=== PATIENT | female | born 1965 | race Two or more races ===

== ENCOUNTER 2020-09-26 07:51 | Emergency (ER) | payer OTHER, SELFPAY ==
--- NOTE | 2020-09-26 07:58 | ED.EXTPRO ---
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 Mode of arrival: ambulatory Limitations: no limitations History of Present Illness HPI Narrative: had her R leg up for a while last night while sitting in chair, felt a pull, tried to sleep and she feels like her hip and R thigh muscles are tight and painful, she tried no OTC medications Complaint: extremity pain Onset (ago): day(s) (last night) Pain Consistency: constant Location: right and lower extremity (hip) Quality: aching Radiation: none Relieving factors: nothing Exacerbating factors: weight bearing and walking Associated symptoms: denies other symptoms Related Data Previous Rx's Medication Instructions Recorded cyclobenzaprine 10 mg PO TID PRN #14 tab 09/26/20 ibuprofen 600 mg PO Q6H PRN #30 tab 09/26/20 lidocaine 1 patch TOPICAL DAILY PRN #10 ea 09/26/20 Allergies Allergy/AdvReac Type Severity Reaction Status Date / Time ciprofloxacin [Cipro] Allergy Unknown palpitation Verified 05/08/19 00:00 s diphenhydramine Allergy Rash Verified 09/26/20 07:53 [From Benadryl] tramadol AdvReac Unknown anxiety Verified 05/08/19 00:00 Codeine Sulfate AdvReac Unknown anxiety/tac Uncoded 05/08/19 00:00 hycardia Review of Systems Review of Systems: Constitutional : No Fever, No Chills ENT/Mouth : No Ear Pain, No Hoarseness, No sore throat Eyes: No Eye Pain, No Swelling, No Redness, No Foreign Body Cardiovascular : No Chest Pain, No SOB Respiratory : No Cough, No Dyspnea Gastrointestinal : No Nausea, No Vomiting, No Diarrhea, No abdominal Pain Genitourinary : No Dysuria, No Hematuria Musculoskeletal : positive joint pain, pos Myalgias, No Joint Swelling Skin : No Skin lacerations, No rash Neuro : No Weakness, No Numbness, No Loss of Consciousness, No Dizziness, No Headache Psych : No Anxiety/Panic, No Depression All other systems reviewed and are negative [facility] Past Medical History Attestation statement: The following information was validated with the patient. Medical History (Updated 09/26/20 @ 08:40 by Oriana Bullard DO) Anxiety Asthma HTN (hypertension) Social History Social History (Updated 09/26/20 @ 08:04 by Oriana Bullard DO) Smoking Status: Never smoker Use of substances other than those prescribed or required for medical reasons: No Advance Directives: No Advance Directives Information Provided: Yes Physical Exam Vital Signs: Vital Signs: Last Vital Signs Temp 98.1 F 09/26/20 08:02 Pulse 83 09/26/20 08:02 Resp 16 09/26/20 08:02 BP 151/78 H 09/26/20 08:02 Pulse Ox 97 09/26/20 08:02 Body Mass Index 31.9 Appearance: Alert. Oriented X3. No acute distress. Eyes: Pupils equal, round and reactive to light. ENT: Pharynx normal. Neck: Normal inspection. Neck supple. CVS: Normal heart rate and rhythm. Pulses normal. Respiratory: No respiratory distress. Breath sounds normal. Abdomen: Soft and nontender. Skin: Skin warm and dry. Normal skin color. Normal skin turgor. Extremities: No lower extremity edema. No calf ttp R thigh and hip mild ttp, can range but reports pain, distal NV intact 2+ DP pulse, sensation intact Neuro: Oriented X 3. No motor deficit. No sensory deficit. MDM - Extremity (Nontraumatic) MDM Narrative Medical decision making narrative: 55 yo female who had her leg up last night for a prolonged time comes in with c/o R hip and thigh pain like a spasm, no signs of infection will obtain xray of hip and given anti inflammatory as well as muscle relaxer - anticipate DC home if results negative, she is NV intact Discharge Plan Discharge Clinical Impression: Hip strain Patient Disposition: Home, Self-Care Instructions: Muscle Strain (ED) Additional Instructions: return to ED for any worsening symptoms or concerns if pain continues you might need to see your primary care for a CT scan of your hip Mild degenerative arthritis. Small sclerotic density projecting over the right femoral neck probably bone island. Alternatively may represent osteoid osteoma, if patient has symptom of osteoma such as pain at night relieved by aspirin, May consider correlation with bone scan or CT scan for confirmation. Prescriptions: New cyclobenzaprine 10 mg tablet 10 mg PO TID PRN (Reason: muscle spasm) Qty: 14 RF: 0 lidocaine 4 % adhesive patch,medicated 1 patch topical DAILY PRN (Reason: pain) Qty: 10 RF: 0 ibuprofen 600 mg tablet 600 mg PO Q6H PRN (Reason: pain) Qty: 30 RF: 0 Referrals: Betsy Joshi MD [Primary Care Provider] - 2 days (if not better) Print Language: Argentine
[2020-09-26 08:02] VITALS: BP 151/78; PULSE 83; RESP 16; TEMP 36.7; O2SAT 97; BMI 31.9
--- NOTE | 2020-09-26 08:02 | XR_ITS ---
EXAMINATION: XR PELVIS EXAMINATION: XR HIP, RIGHT , AP pelvis CLINICAL INFORMATION: Pain COMPARISON: None available at the time of this dictation. TECHNIQUE: Frontal and lateral views of the hip acquired. , AP pelvis FINDINGS: There is no evidence of acute fracture or dislocation. There are mild degenerative arthritic changes of the hip evident by sclerotic changes of the acetabular roof and narrowing of the joint space. Mild degenerative changes of the symphysis pubis. Mild degenerative changes of the SI joints. Adjacent pubic rami are intact. Surrounding soft tissues are unremarkable. There is a pericolonic device projecting over the right hemipelvis. The leads projecting over the sacrum. Small sclerotic density likely bone island projecting over the right femoral neck. XR/XR hip RT w PEL1V IMPRESSION: Mild degenerative arthritis. Small sclerotic density projecting over the right femoral neck probably bone island. Alternatively may represent osteoid osteoma, if patient has symptom of osteoma such as pain at night relieved by aspirin, May consider correlation with bone scan or CT scan for confirmation.
[2020-09-26] MEDS: diazePAM 5 MG TABLET PO (08:15)
[2020-09-26] MEDS: Ketorolac Tromethamine 60 MG/2 ML VIAL IM (08:15)
== END 2020-09-26 09:57 | disposition home or self-care (01) ==
PROVIDERS: Emergency Provider Emergency Medicine; PCP Internal Medicine
DX: S76.011A Strain of muscle, fascia and tendon of right hip, initial encounter (principal); X50.1XXA Overexertion from prolonged static or awkward postures, initial encounter; I10 Essential (primary) hypertension; Y93.89 Activity, other specified; Y92.018 Other place in single-family (private) house as the place of occurrence of the external cause; Y99.9 Unspecified external cause status
CPT/HCPCS: 73502; 96372; 99284; J1885

== ENCOUNTER 2021-01-24 10:14 | Outpatient (REF) | payer OTHER, MEDICAID, SELFPAY ==
[2021-01-24 10:52] LABS: MANUAL DIFF FLAG NO
[2021-01-24 10:57] LABS: Basophils Percent Auto 0.8 % (0-2); Eosinophils Absolute Auto 0.2 X10*3/uL (0.0-0.4); Eosinophils Percent Auto 2.9 % (0-4); Hematocrit 39.3 % (37-47); Hemoglobin 11.6 g/dl (12.0-16.0); Imm Gran Abs Auto 0.01 X10*3/uL (0.00-0.03); Imm Gran Pct Auto 0.2 % (0.0-0.4); Lymphocytes Absolute Auto 1.9 X10*3/uL (1.2-4.9); Lymphocytes Percent Auto 35.9 % (20-40); Mean Corpuscular HGB Conc 29.5 g/dl (31.0-35.0); Mean Corpuscular Hemoglobin 21.8 pg (27.0-33.0); Mean Corpuscular Volume 73.9 fL (80-98); Mean Platelet Volume 10.8 fL (9.4-12.3); Monocytes Absolute Auto 0.5 X10*3/uL (0.1-1.2); Monocytes Percent Auto 9.1 % (2-11); Neutrophils Absolute Auto 2.6 X10*3/uL (2.0-8.3); Neutrophils Percent Auto 51.1 % (45-73); Platelet Count 308 X10*3/uL (160-400); Red Blood Count 5.32 X10*6/uL (4.20-5.50); Red Cell Distribution Width 14.5 % (11.0-16.0); White Blood Count 5.2 X10*3/uL (4.8-10.8)
[2021-01-24 11:21] LABS: Alanine Aminotransferase 18 U/L (0-31); Albumin Level 4.2 g/dL (3.5-5.0); Alkaline Phosphatase 104 U/L (39-117); Anion Gap 13 (12-20); Aspartate Amino Transferase 17 U/L (5-31); Bilirubin Total 1.1 mg/dL (0.0-1.0); Blood Urea Nitrogen 10 mg/dL (9-16); Calcium 9.3 mg/dL (8.4-10.2); Carbon Dioxide 27 mmol/L (22-29); Chloride 106 mmol/L (96-108); Estimated Glomerular Filt Rate > 60; Glucose Random 83 mg/dL (60-115); Potassium 4.8 mmol/L (3.3-5.1); Sodium 141 mmol/L (135-145); Total Protein 7.1 g/dL (6.5-8.0)
[2021-01-24 11:43] LABS: Ferritin 33 ng/mL (10-250)
== END 2021-01-24 10:15 | disposition home or self-care (01) ==
LOC: HO.LAB 10:14
PROVIDERS: PCP Internal Medicine; Visit Provider Internal Medicine Medical Oncology
DX: D50.9 Iron deficiency anemia, unspecified (principal)
CPT/HCPCS: 36415; 80053; 82728; 85025

== ENCOUNTER 2021-06-15 08:58 | Outpatient (REF) | payer OTHER, MEDICAID, SELFPAY | END 2021-06-15 08:59 | disposition home or self-care (01) | LOC: HO.LAB 08:58 | PROVIDERS: PCP Internal Medicine; Visit Provider Internal Medicine | DX: Z20.822 Contact with and (suspected) exposure to COVID-19 (principal) | CPT/HCPCS: C9803; U0003; U0005 ==

== ENCOUNTER 2021-07-27 14:07 | Outpatient (REF) | payer OTHER, MEDICAID, SELFPAY ==
--- NOTE | 2021-07-28 08:57 | MHC.AU.ATI ---
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 For the patient, the rash was inside her right ear and was very itchy. She also developed tinnitus that was worse in the right ear. The doctor she saw at the time did not think the rash was an infection, and prescribed drops to help soothe the itching. The rash cleared up, but the tinnitus has persisted since then. She also reports that a few years ago she was prescribed a medication for an unrelated condition that caused numerous significant side effects. One of the effects was a worsening of the right-sided tinnitus. The tinnitus has stayed in a heightened state since then, despite discontinuing the medication. She also feels the tinnitus is worse in the morning. Patient feels that overall, she hears well in daily conversation. Ear History: Ear Deformity: None Reported Recent Ear Drainage: None Reported Recent Ear Pain: None Reported Family History of Hearing Loss?: Yes: Mother Recent Ear Infections: None Reported Ear Infections in Childhood: None Reported History of Ear Wax Buildup: None Reported Previous Ear Surgery: None Reported Bothersome Tinnitus/Ringing/Noises in Ears: Both ears, worse in right Ear used on the phone: Left Ear Blocked/Full Sensation in Ear(s): None Reported History of occupational noise exposure?: No History: No Medical History: Medication List: Clonidine, Wellbutrin, Lamotrigine, Calcium, Fish Oil, Vitamins Otoscopy: Right Ear: Unremarkable Left Ear: Unremarkable Tympanometry: Tympanometry performed due to: To assess integrity of the middle ear system Right Ear: Normal Middle Ear System (Type A) Left Ear: Normal Middle Ear System (Type A) Otoacoustic Emissions Frequency Range Used: 1.6-8 kHz Right Ear Results: Reduced Emissions Analysis: Reduced/Absent emissions suggest cochlear dysfunction Left Ear Results: Reduced Emissions Analysis: Reduced/Absent emissions suggest cochlear dysfunction Hearing Evaluation: Transducer(s) Used: Insert Earphones Method: Conventional Audiometry Stimuli Used: Pure Tones Right Ear: Description of Hearing: Normal/borderline from 250-3000 Hz, sloping to moderate sensorineural hearing loss Left Ear: Description of Hearing: Normal/borderline from 250-3000 Hz, sloping to moderate sensorineural hearing loss Speech Recognition Threshold (SRT): Method Used: Recorded Lists Stimuli Used: Spondee Words [place] Trisyllable Words Right Ear: 25 dBHL Left Ear: 30 dBHL Word Discrimination: Method: Recorded Lists Word Lists Used:: Lista Bisil?bica ([place]) Right Ear: 96% at 65 dBHL Left Ear: 100% at 65 dBHL Interpretation of Results: At this time, the majority of the patient's hearing is still falling within normal range. The mild to moderate hearing loss at 9557-8147 Hz is unlikely to have a significant impact on her daily communication ability. Otoacoustic emissions are reduced/absent bilaterally from 6045-1167 Hz. Recommendations: Audiological re-evaluation in one year. Referral to Ear, Nose, and Throat is recommended to further investigate right-sided tinnitus. Diagnosis: Primary Diagnosis: H93.11 Tinnitus, Right Ear Secondary Diagnosis: H90.3 Bilateral Sensorineural Hearing Loss Signature: Provider: Jaylen Arauz, CCC-A
== END 2021-07-27 14:08 | disposition home or self-care (01) ==
LOC: HO.SH 14:07
PROVIDERS: Visit Provider Internal Medicine
DX: H93.11 Tinnitus, right ear (principal); H90.3 Sensorineural hearing loss, bilateral
CPT/HCPCS: 92557; 92567; 92587

== ENCOUNTER 2022-02-21 11:41 | Outpatient (REF) | payer OTHER, SELFPAY ==
[2022-02-21 13:38] LABS: Appearance Urine CLOUDY; Color Urine YELLOW; Glucose Urine UA NEG (NEG); Leukocyte Esterase Urine 2+ (NEG); Nitrite Urine POS (NEG); Specific Gravity - Urine 1.015 (1.005-1.025); UACC Culture Trigger YES; Urine Blood TRACE (NEG); Urine Ketones NEG (NEG); Urine Protein NEG (NEG-TRACE)
[2022-02-21 14:00] LABS: WBC Urine TNTC /HPF (0-4)
[2022-02-21 14:01] LABS: Bacteria Urine TRACE /LPF
== END 2022-02-21 11:42 | disposition home or self-care (01) ==
LOC: HO.LAB 11:41
PROVIDERS: PCP Internal Medicine; Visit Provider Internal Medicine
DX: R30.0 Dysuria (principal)
CPT/HCPCS: 81001; 87086; 87088; 87186

== ENCOUNTER 2022-09-07 15:41 | Outpatient (REF) | payer OTHER, SELFPAY ==
[2022-09-07 15:57] LABS: MANUAL DIFF FLAG NO
[2022-09-07 17:19] LABS: Basophils Percent Auto 0.6 % (0-2); Eosinophils Absolute Auto 0.2 X10*3/uL (0.0-0.4); Eosinophils Percent Auto 2.7 % (0-4); Hematocrit 38.8 % (37.0-47.0); Hemoglobin 11.8 g/dl (12.0-16.0); Imm Gran Abs Auto 0.02 X10*3/uL (0.00-0.03); Imm Gran Pct Auto 0.3 % (0.0-0.4); Lymphocytes Absolute Auto 2.4 X10*3/uL (1.2-4.9); Lymphocytes Percent Auto 35.4 % (20-40); Mean Corpuscular HGB Conc 30.4 g/dl (31.0-35.0); Mean Corpuscular Volume 72.3 fL (80.0-98.0); Monocytes Absolute Auto 0.5 X10*3/uL (0.1-1.2); Neutrophils Absolute Auto 3.6 x10*3/uL (2.0-8.3); Platelet Count 351 X10*3/uL (160-400); Red Blood Count 5.37 X10*6/uL (4.20-5.50); Red Cell Distribution Width 14.4 % (11.0-16.0); White Blood Count 6.8 X10*3/uL (4.8-10.8)
[2022-09-07 17:22] LABS: Appearance Urine Clear; Color Urine Yellow; Glucose Urine UA Negative (Negative); Leukocyte Esterase Urine Negative (Negative); Nitrite Urine Negative (Negative); PH 5.5 (5.0-9.0); Specific Gravity - Urine 1.025 (1.005-1.025); Urine Blood Negative (Negative); Urine Ketones Negative (Negative); Urine Protein Negative (Neg-Trace)
[2022-09-07 18:10] LABS: Alanine Aminotransferase 19 U/L (0-31); Albumin Level 4.5 g/dL (3.5-5.0); Alkaline Phosphatase 123 U/L (39-117); Anion Gap 10 (12-20); Aspartate Amino Transferase 19 U/L (5-31); Bilirubin Total 1.1 mg/dL (0.0-1.0); Blood Urea Nitrogen 12 mg/dL (9-16); Calcium 9.9 mg/dL (8.4-10.2); Carbon Dioxide 28 mmol/L (22-29); Chloride 103 mmol/L (96-108); Cholesterol 241 mg/dL; Estimated Glomerular Filt Rate > 60; Glucose Fasting 91 mg/dL (60-99); HDL Cholesterol 50 mg/dL; Iron 89 mcg/dL (30-160); LDL Cholesterol Calculated 169 mg/dl; Percent Iron Saturation 24 % (15-50); Potassium 4.1 mmol/L (3.3-5.1); Sodium 137 mmol/L (135-145); Total Iron Binding Capacity 371 mcg/dL (228-428); Total Protein 7.3 g/dL (6.5-8.0); Triglycerides 112 mg/dL; Unsaturated Iron Binding 282 ug/dL; Vitamin D 25-OH Total 22.5 ng/mL (>30)
== END 2022-09-07 15:42 | disposition home or self-care (01) ==
LOC: HO.LAB 15:41
PROVIDERS: PCP Internal Medicine; Visit Provider Internal Medicine
DX: E78.5 Hyperlipidemia, unspecified (principal); E55.9 Vitamin D deficiency, unspecified; D64.9 Anemia, unspecified; E78.00 Pure hypercholesterolemia, unspecified; R30.0 Dysuria
CPT/HCPCS: 36415; 80053; 80061; 81003; 82306; 83540; 85025

== ENCOUNTER 2022-10-04 12:20 | Outpatient (REF) | payer OTHER, SELFPAY ==
--- NOTE | ~2022-10-04 | MM_ITS ---
EXAMINATION: MM SCREENING DIGITAL BREAST TOMOSYNTHESIS, BILATERAL CLINICAL INFORMATION: Screening. Asymptomatic. The lifetime risk of breast cancer based on the Tyrer-Cuzick Model is 6%. COMPARISON: Mammography: July 11, 2016 and studies dating back to November 27, 2012 TECHNIQUE: Digital breast tomosynthesis is performed in both the craniocaudal and mediolateral oblique views along with computer-aided detection (CAD). Synthesized 2D images are generated from the tomosynthesis. FINDINGS: There are scattered areas of fibroglandular density (ACR BI-RADS breast composition Category b). There are no significant masses, abnormal calcifications, or other abnormalities. MM/MM tomosynthesis screening BI IMPRESSION: No significant changes from prior exam. ASSESSMENT: BI-RADS 1: Negative RECOMMENDATION: Routine annual mammography screening. This patient's information was entered into a reminder system with a target due date for their next mammogram.
== END 2022-10-04 12:21 | disposition home or self-care (01) ==
LOC: HO.MAMMO 12:20
PROVIDERS: PCP Internal Medicine; Visit Provider Internal Medicine
DX: Z12.31 Encounter for screening mammogram for malignant neoplasm of breast (principal)
CPT/HCPCS: 77063; 77067

== ENCOUNTER 2023-03-19 13:47 | Outpatient (REF) | payer MEDICARE, OTHER, SELFPAY ==
[2023-03-19 15:10] LABS: Alanine Aminotransferase 16 U/L (0-31); Albumin Level 4.4 g/dL (3.5-5.0); Alkaline Phosphatase 125 U/L (39-117); Anion Gap 11 (12-20); Aspartate Amino Transferase 18 U/L (5-31); Bilirubin Total 0.7 mg/dL (0.0-1.0); Blood Urea Nitrogen 11 mg/dL (9-16); Calcium 9.9 mg/dL (8.4-10.2); Carbon Dioxide 29 mmol/L (22-29); Chloride 106 mmol/L (96-108); Cholesterol 206 mg/dL; Estimated Glomerular Filt Rate > 60; Glucose Fasting 91 mg/dL (60-99); HDL Cholesterol 51 mg/dL; LDL Cholesterol Calculated 133 mg/dl; Potassium 4.4 mmol/L (3.3-5.1); Sodium 142 mmol/L (135-145); Total Protein 7.4 g/dL (6.5-8.0); Triglycerides 113 mg/dL
[2023-03-19 15:25] LABS: Vitamin D 25-OH Total 31.3 ng/mL (>30)
== END 2023-03-19 13:48 | disposition home or self-care (01) ==
LOC: HO.LAB 13:47
PROVIDERS: PCP Internal Medicine; Visit Provider Internal Medicine
DX: E78.00 Pure hypercholesterolemia, unspecified (principal); E78.5 Hyperlipidemia, unspecified; E55.9 Vitamin D deficiency, unspecified
CPT/HCPCS: 36415; 80053; 80061; 82306

== ENCOUNTER 2023-10-02 14:09 | Outpatient (AMB) | payer OTHER, SELFPAY ==
--- NOTE | 2023-10-02 14:17 | MHC.PC.OV ---
Vital Signs 10/02/23 14:20 10/02/23 15:11 Height 5 ft 4 in Weight 185 lb BMI 31.8 BP 158/92 H 160/90 H Blood Pressure Location Lt brachial Lt brachial Position Sitting Sitting Intake Visit Reasons: Annual Exam Intake Note: Patient here for an annual physical exam Frame Feeder Required: No Accompanied by: Self / Same As Patient Allergies ciprofloxacin [Cipro] Allergy (Unknown, Verified 10/02/23 14:29) palpitations diphenhydramine [From Benadryl] Adverse Reaction (Intermediate, Verified 10/02/23 14:29) tachycardia haloperidol Adverse Reaction (Mild, Verified 10/02/23 14:29) Anxiety tramadol Adverse Reaction (Unknown, Verified 10/02/23 14:29) anxiety Codeine Sulfate Adverse Reaction (Unknown, Uncoded 10/02/23 14:29) anxiety/tachycardia Medication List - Last Reconciled 10/02/23 by Betsy Nelson MD calcium carbonate (Calcium) 600 mg PO DAILY 90 days cholecalciferol (vitamin D3) 25 mcg PO DAILY 90 days clonazepam 0.25 mg PO BEDTIME clonidine HCl 0.1 mg PO BID fexofenadine (Roxanne Allergy) 60 mg PO BID PRN 90 days lamotrigine 75 mg PO DAILY mirtazapine 7.5 mg PO DAILY multivitamin 1 tab PO DAILY 30 days pravastatin 10 mg PO BEDTIME 90 days Ventolin HFA 90 mcg/actuation (albuterol sulfate) 2 puffs inhalation Q6H PRN 30 days NS vitamin E (dl, acetate) 180 mg PO DAILY 90 days Tobacco use date assessed: 03/19/23 Dental Screening Dental Screen Date: 10/02/23 Did you have a dental visit in the last 12 months?: Yes Did you have a dental problem in the last 6 months where you did not have access to dental care?: No Was dental information given to patient?: Patient has dentist HPI HPI Comments History of Present Illness Details This is a 58-year-old female with moderate recurrent major depression that comes for her physical exam. Last colonoscopy was 2014 and was normal. Last mammogram was September 2022 and was normal. No need for Pap smear due to hysterectomy. Complains of abdominal pain and fecal incontinence. Was referred to Gastroenterology in March 2023 but she did not want. Depression stable with meds. [facility] Medical History Moderate recurrent major depression Pure hypercholesterolemia UTI (urinary tract infection) Hearing loss HTN (hypertension) Anxiety Asthma Surgical History Female bladder prolapse History of bladder suspension procedure History of total abdominal hysterectomy Family History Brother Mental health disorder Father No problems noted. Mother Mental health disorder Social History Housing: House Alcohol intake: former Patient Tobacco Use Status: Former Tobacco user Tobacco use type: Cigarette e-Cigarette/Vaping Use: Never Used Second Hand Smoke Exposure: No service: No Current occupational status: unemployed Cognitive needs: No Hearing needs: No Vision needs: Yes Questionnaire Thrive Questionnaire Date Thrive assessed: 03/19/23 MARCUS-7 AMB Questionnaire MARCUS-7 Date MARCUS - 7 assessed: 03/19/23 Source: Developed by Drs. Joao Dunbar, Enedelia Chaudhari, Mynor Trevino and colleagues, with an educational jose from [employer]. Review of Systems Const All systems reviewed & are unremarkable except as noted in HPI and below Eyes Reports no additional complaints, Denies change in vision and Denies other visual disturbances Card Denies chest pain at rest, Denies chest pain with activity, Denies edema, Denies irregular heart rhythm, Denies claudication, Denies dyspnea, Denies dyspnea on exertion, Denies orthopnea, Denies paroxysmal nocturnal dyspnea and Denies slow heart rate Resp Denies cough, Denies dyspnea and Denies dyspnea on exertion GI Reports abdominal pain, Denies change in bowel habits, Denies excessive flatus, Reports fecal incontinence, Denies nausea and Denies vomiting Denies urinary incontinence, Denies urinary hesitancy and Denies urinary urgency Musc Denies abnormal gait, Denies atrophy, Denies deformity and Denies limited range of motion Skin/Breast Denies bleeding lesions, Denies changing lesions and Denies rash Neuro Denies abnormal gait, Denies behavioral changes, Denies confusion and Denies lack of coordination Psych Denies behavioral changes and Denies confusion Physical exam (Primary Care) Vital Signs: Last Vital Signs BP 158/92 H 10/02/23 14:20 BMI result Body Mass Index 31.8 Tobacco/Smoking Status: Tobacco use Status Tobacco use date assessed 03/19/23 10/02/23 14:19 Patient Tobacco Use Status Former Tobacco user 10/02/23 14:19 Tobacco use type Cigarette 10/02/23 14:19 e-Cigarette/Vaping Use Never Used 10/02/23 14:19 Thrive Assessment: Date of Thrive Assessment Date Thrive assessed 03/19/23 10/02/23 14:19 Const General: No confusion Orientation/consciousness: patient oriented x3 and No confusion HENMT Head: Yes normal to inspection, Yes normocephalic and Yes atraumatic Ears: external ears normal Eyes General: appearance normal, both eyes and all related structures Eyelids: Yes eyelids normal Conjunctivae: conjunctivae normal Neck Neck: Yes normal visual inspection and Yes supple Resp Effort & Inspection: normal respiratory effort Auscultation: clear to auscultation bilaterally Cardio Jugular venous distension: no JVD Rate: regular rate Rhythm: regular rhythm Heart sounds: S1 normal heart sound present and S2 normal heart sound present GI Inspection: Yes normal to inspection Palpation (GI): Soft to palpation and nontender Auscultation: normal bowel sounds Skin General skin exam: no rashes or lesions noted Neuro General: patient oriented x3, no focal motor deficits and No confusion Extrem General: Yes full ROM Psych Appearance: grossly normal Office Procedures Flu Questionnaire Does the patient have a severe egg allergy?: No Results AMB Urinalysis, Automated UA Leukoctes 3 Jannet/uL Last Edit by ARELY Orozco on 10/02/23 15:04 UA Nitrite Positive Last Edit by ARELY Orozco on 10/02/23 15:04 UA Urobilinogen 3 mg/dL Last Edit by ARELY Orozco on 10/02/23 15:04 + Elicia Adames 10/02/23 15:04 UA Protein 15 mg/dL Last Edit by ARELY Orozco on 10/02/23 15:04 +- Elicia Adames 10/02/23 15:04 UA pH 5.0 Last Edit by ARELY Orozco on 10/02/23 15:04 UA Blood 0 Rg/uL Last Edit by ARELY Orozco on 10/02/23 15:04 UA Specific [place] 1.025 Last Edit by ARELY Orozco on 10/02/23 15:04 UA Ketone Positive Last Edit by ARELY Orozco on 10/02/23 15:04 +- 5mg/dl Elicia Adames 10/02/23 15:04 UA Bilirubin 3 mg/dL Last Edit by ARELY Orozco on 10/02/23 15:04 + Elicia Adames 10/02/23 15:04 UA Glucose 1 mg/dL Last Edit by ARELY Orozco on 10/02/23 15:04 + Elicia Adames 10/02/23 15:04 Immunizations flu vacc [id number] 6mos up(PF) 60 mcg(15 mcgx4)/0.5 mL IM syringe Performing Provider: Betsy Nelson MD [facility] Documented (not given) by: ARELY Orozco on 10/02/23 14:24 Reason Not Given: Patient Refused Results Reviewed Results Reviewed: Laboratory Last Values Urine pH (Auto) 5.0 10/02/23 15:00 Specific [place] (Auto) 1.025 10/02/23 15:00 Urine Protein (Auto) 15 mg/dL 10/02/23 15:00 Glucose (UA)(Auto) 1 mg/dL 10/02/23 15:00 Urine Ketones (Auto) Positive 10/02/23 15:00 Urine Blood (Auto) 0 Rg/uL 10/02/23 15:00 Urine Nitrite (Auto) Positive 10/02/23 15:00 Urine Bilirubin (Auto) 3 mg/dL 10/02/23 15:00 Urine Urobilinogen (Auto) 3 mg/dL 10/02/23 15:00 Leukocyte Esterase (Auto) 3 Jannet/uL 10/02/23 15:00 Assessment and Plan Assessment & Plan (1) Physical exam: Code(s): Z00.00 - Encounter for general adult medical examination without abnormal findings Plan: Repeat in a year. (2) Moderate recurrent major depression: Code(s): F33.1 - Major depressive disorder, recurrent, moderate Plan: Continue mirtazapine. Follow-up with psychiatry. Orders: Orders Influenza [id number] Immunization Today Z23 - Encounter for immunization Vitamin D 25-OH Total Today E55.9 - Vitamin D deficiency, unspecified Comprehensive [place]. Panel Fast Today E78.00 - Pure hypercholesterolemia, unspecified Urine Culture Today N39.0 - Urinary tract infection, site not specified Lipid Panel Today E78.5 - Hyperlipidemia, unspecified SARS-CoV2/FLU/RSV Today R09.89 - Other specified symptoms and signs involving the circulatory and respiratory systems AMB Urinalysis Automated Today N39.0 - Urinary tract infection, site not specified Referrals Gastroenterology Referral R15.9 - Full incontinence of feces Medications: New nitrofurantoin macrocrystal must administer with a meal/food 100 mg PO BID 14 caps 0RF 7 days Coding Level of Care Code Est Pt Prev Care 40-64y(30838) Diagnoses Physical exam Z00.00 Moderate recurrent major depression F33.1 Time Spent (min) 32
[2023-10-02 14:20] VITALS: BP 158/92; BMI 31.8
[2023-10-02 15:11] VITALS: BP 160/90
== END 2023-10-02 15:07 | disposition home or self-care (01) ==
PROVIDERS: Visit Provider Internal Medicine
DX: Z00.00 Encounter for general adult medical examination without abnormal findings (principal); F33.1 Major depressive disorder, recurrent, moderate; N39.0 Urinary tract infection, site not specified
CPT/HCPCS: 81003; 99396

== ENCOUNTER 2023-10-02 14:54 | Outpatient (REF) | payer MEDICARE, OTHER, SELFPAY ==
[2023-10-02 17:25] LABS: Influenza A PCR NEGATIVE (Negative); Influenza B PCR NEGATIVE (Negative); Resp Syncy Virus RNA Qual PCR NEGATIVE (Negative); SARS COV2 PCR INHOUSE NEGATIVE (Negative)
== END 2023-10-02 14:55 | disposition home or self-care (01) ==
LOC: HO.LAB 14:54
PROVIDERS: PCP Internal Medicine; Visit Provider Internal Medicine
DX: Z11.52 Encounter for screening for COVID-19 (principal); R09.89 Other specified symptoms and signs involving the circulatory and respiratory systems; N39.0 Urinary tract infection, site not specified; Z20.822 Contact with and (suspected) exposure to COVID-19
CPT/HCPCS: 0241U; 87086; 87088; 87186

== ENCOUNTER 2023-10-04 12:22 | Outpatient (REF) | payer MEDICARE, OTHER, SELFPAY ==
[2023-10-04 13:33] LABS: Alanine Aminotransferase 18 U/L (0-31); Albumin Level 4.3 g/dL (3.5-5.0); Alkaline Phosphatase 104 U/L (39-117); Anion Gap 11 (12-20); Aspartate Amino Transferase 18 U/L (5-31); Bilirubin Total 1.1 mg/dL (0.0-1.0); Blood Urea Nitrogen 11 mg/dL (9-16); Calcium 9.5 mg/dL (8.4-10.2); Carbon Dioxide 29 mmol/L (22-29); Chloride 105 mmol/L (96-108); Cholesterol 235 mg/dL (<200); Estimated Glomerular Filt Rate > 60; Glucose Fasting 95 mg/dL (60-99); HDL Cholesterol 53 mg/dL (>40); LDL Cholesterol Calculated 155 mg/dL (<100); Potassium 4.5 mmol/L (3.3-5.1); Sodium 140 mmol/L (135-145); Total Protein 7.7 g/dL (6.5-8.0); Triglycerides 139 mg/dL (<150)
[2023-10-04 13:47] LABS: Vitamin D 25-OH Total 29.4 ng/mL (>30)
== END 2023-10-04 12:23 | disposition home or self-care (01) ==
LOC: HO.LAB 12:22
PROVIDERS: PCP Internal Medicine; Visit Provider Internal Medicine
DX: E55.9 Vitamin D deficiency, unspecified (principal); E78.5 Hyperlipidemia, unspecified; E78.00 Pure hypercholesterolemia, unspecified
CPT/HCPCS: 36415; 80053; 80061; 82306

== ENCOUNTER 2023-11-27 13:00 | Outpatient (REF) | payer MEDICARE, OTHER, SELFPAY ==
--- NOTE | ~2023-11-27 | MM_ITS ---
EXAMINATION: MM SCREENING DIGITAL BREAST TOMOSYNTHESIS, BILATERAL CLINICAL INFORMATION: Screening. Asymptomatic. COMPARISON: Mammography: This study is compared with prior exams dating back to 2016. TECHNIQUE: Digital breast tomosynthesis is performed in both the craniocaudal and mediolateral oblique views along with computer-aided detection (CAD). Synthesized 2D images are generated from the tomosynthesis. FINDINGS: There are scattered areas of fibroglandular density (ACR BI-RADS breast composition Category b). There are no significant masses, abnormal calcifications, or other abnormalities. MM/MM tomosynthesis screening BI IMPRESSION: No mammographic evidence of malignancy. ASSESSMENT: BI-RADS BI-RADS 1 - Negative RECOMMENDATION: Routine annual mammography screening. 1 year F/U This examination should not preclude the clinical evaluation of a suspicious palpable abnormality. This patient's information was entered into a reminder system with a target due date for their next mammogram.
== END 2023-11-27 13:01 | disposition home or self-care (01) ==
LOC: HO.MAMMO 13:00
PROVIDERS: PCP Internal Medicine; Visit Provider Internal Medicine
DX: Z12.31 Encounter for screening mammogram for malignant neoplasm of breast (principal)
CPT/HCPCS: 77063; 77067

== ENCOUNTER → 2023-11-27 13:45 | Outpatient (BNV) | payer MEDICARE, OTHER, SELFPAY | PROVIDERS: PCP Internal Medicine; Visit Provider Radiology Diagnostic Radiology | DX: Z12.31 Encounter for screening mammogram for malignant neoplasm of breast (principal) | CPT/HCPCS: 77063; 77067 ==

== ENCOUNTER 2024-01-08 13:12 | Outpatient (AMB) | payer MEDICARE, OTHER, SELFPAY ==
--- NOTE | 2024-01-08 13:18 | A.OFFVIS_ITS ---
Intake Vital Signs 01/08/24 13:21 Height 5 ft 4 in Weight 185 lb 3.013 oz BMI 31.8 BP 138/67 Blood Pressure Location Lt brachial Position Sitting Pulse 86 Intake Visit Reasons: Full incontinence of feces Intake Note: Leeanne presents in the office as a new patient for full incontinence of feces. CC: She is here today because she is having issues with her stomach when she eats she gets pains. She states that when she goes out and her stomach is full she will get sweats and shivers and needs to find a bathroom and if not in time she is will have an accident. She states that she is having other issues with her stomach - She states when she is home and she eats she is unable to do anything because she will get the pains and have to run to the bathroom. It will happen again after the episode. She states that when she gets this pains she can have weakness and shakiness. It does not happen all the time but she will feel like she is going to faint. She states that it can happen when she is under stress or nervous or around people she will feel the pains as well. Utility Sales And Service Manager Required: Yes Utility Sales And Service Manager Name: [id number] Balb[place] Allergies ciprofloxacin [Cipro] Allergy (Unknown, Verified 01/08/24 13:22) palpitations diphenhydramine [From Benadryl] Adverse Reaction (Intermediate, Verified 01/08/24 13:22) tachycardia haloperidol Adverse Reaction (Mild, Verified 01/08/24 13:22) Anxiety tramadol Adverse Reaction (Unknown, Verified 01/08/24 13:22) anxiety Codeine Sulfate Adverse Reaction (Unknown, Uncoded 01/08/24 13:22) anxiety/tachycardia Medication List - Last Reconciled 01/08/24 by Keren Ramos PA-C atorvastatin 10 mg PO BEDTIME 90 days buspirone 5 mg PO DAILY calcium carbonate (Calcium) 600 mg PO DAILY 90 days cholecalciferol (vitamin D3) 25 mcg PO DAILY 90 days clonazepam 0.5 mg PO BID PRN clonidine HCl 0.1 mg PO BID lamotrigine 75 mg PO DAILY mirtazapine 7.5 mg PO DAILY multivitamin 1 tab PO DAILY 30 days Ventolin HFA 90 mcg/actuation (albuterol sulfate) 2 puffs inhalation Q6H PRN 30 days NS HPI HPI Comments History of Present Illness Details 58-year-old female referred with fecal i ncontinence- she says she does not have incontinence- she describes urgency- especially when she gets nervous- this has been ongoing since she was a child- If she has people at her house she gets nervous- and notice she gets a stomach ache- then has to have a BM. Appetite is good- She has no cardiac or respiratory complaint No nausea, vomiting, hematemesis, hematochezia fever chills PT-C/O She is here today because she is having issues with her stomach when she eats she gets pains. She states that when she goes out and her stomach is full she will get sweats and shivers and needs to find a bathroom and if not in time she is will have an accident. She states that she is having other issues with her stomach - She states when she is home and she eats she is unable to do anything because she will get the pains and have to run to the bathroom. It will happen again after the episode. She states that when she gets this pains she can have weakness and shakiness. It does not happen all the time but she will feel like she is going to faint. She states that it can happen when she is under stress or nervous or around people she will feel the pains as well. Reviewed record noting colonoscopy 2014 Dr. Luke hyperplastic polyp [facility] Medical History (Updated 01/08/24 @ 14:25 by Keren Ramos PA-C) IBS (irritable bowel syndrome) Moderate recurrent major depression Pure hypercholesterolemia UTI (urinary tract infection) Hearing loss HTN (hypertension) Anxiety Asthma Surgical History Female bladder prolapse History of bladder suspension procedure History of total abdominal hysterectomy Family History Brother Mental health disorder Father No problems noted. Mother Mental health disorder Social History Housing: House Alcohol intake: former Patient Tobacco Use Status: Former Tobacco user Tobacco use type: Cigarette e-Cigarette/Vaping Use: Never Used Second Hand Smoke Exposure: No service: No Current occupational status: unemployed Cognitive needs: No Hearing needs: No Vision needs: Yes Review of Systems Const All systems reviewed & are unremarkable except as noted in HPI and below Card Denies chest pain and Denies dyspnea Resp Denies dyspnea GI Reports abdominal pain, Denies hematochezia, Denies constipation, Denies heartburn, Reports loose stools, Denies nausea and Denies vomiting Psych Reports anxiety, Reports depression, Denies homicidal ideation and Denies suicidal ideation Physical Exam Vital Signs: Last Vital Signs Pulse 86 01/08/24 13:21 BP 138/67 01/08/24 13:21 BMI result Body Mass Index 31.8 Const General: cooperative, comfortable and no acute distress Orientation/consciousness: patient oriented x3 Limitations: language barrier Eyes Sclerae: sclerae normal Resp Effort & Inspection: normal respiratory effort and able to speak in complete sentences Auscultation: clear to auscultation bilaterally Cardio Rate: regular rate Rhythm: regular rhythm Heart sounds: S1 normal heart sound present and S2 normal heart sound present Skin General skin exam: no rashes or lesions noted Neuro General: patient oriented x3 Extrem General: Yes full ROM Psych Appearance: grossly normal and well kempt Affect: normal affect Attitude: cooperative Thought process: Normal thought process present Thought content: Normal thought content present Insight: Good insight present (Psych) Judgement: Good judgement present (Psych) Assessment & Plan Assessment & Plan (1) Anxiety: Code(s): F41.9 - Anxiety disorder, unspecified Plan: Reassurance (2) IBS (irritable bowel syndrome): Comment: Lifelong loose stool, urgency, associated anxiety Code(s): K58.9 - Irritable bowel syndrome without diarrhea Plan: dicyclomine 10 mg in am- february repeat CBC, CMP, TSH TTG IgA- (3) Fecal incontinence: Comment: describes urgency Code(s): R15.9 - Full incontinence of feces Plan Colonoscopy MG prep Orders: Orders Complete Blood Count Auto Diff Today K52.9 - Noninfective gastroenteritis and colitis, unspecified Endomysial IgA rflx Titer Today K58.9 - Irritable bowel syndrome without diarrhea, R15.9 - Full incontinence of feces Colonoscopy - GI Use Only Today K58.9 - Irritable bowel syndrome without diarrhea, R15.9 - Full incontinence of feces Thyroid Stimulating Hormone Today R19.8 - Other specified symptoms and signs involving the digestive system and abdomen Transglutaminase IgA Today R19.7 - Diarrhea, unspecified Medications: New bisacodyl (Dulcolax (bisacodyl)) Day before procedure @ 12 noon Take 4 tablets by mouth followed by large glass of water 20 mg (4 x 5 mg) PO ONCE PRN 4 tabs 0RF colonoscopy prep 1 day Z12.11 - Encounter for screening for malignant neoplasm of colon polyethylene glycol 3350 (Miralax) Take as directed by mouth the day before your procedure. 238 grams PO ONCE PRN 238 grams 0RF laxative effect 1 day dicyclomine 10 mg PO TID 90 caps 0RF Patient Instructions: Colonoscopy-labs consider add EGD if indicated MG prep dicyclomine HFD Encouraged to call questions or concerns Will see back in follow-up prior to procedure for progress Coding Level of Care Code New Pt Level 3 (96706) Diagnoses Anxiety F41.9 IBS (irritable bowel syndrome) K58.9 Fecal incontinence R15.9 Time Spent (min) 30 Comment asl interpreter
[2024-01-08 13:21] VITALS: BP 138/67; PULSE 86; BMI 31.8
== END 2024-01-08 14:08 | disposition home or self-care (01) ==
PROVIDERS: PCP Internal Medicine; Visit Provider Physician Assistant
DX: F41.9 Anxiety disorder, unspecified (principal); K58.9 Irritable bowel syndrome, unspecified; R15.9 Full incontinence of feces
CPT/HCPCS: 99203

== ENCOUNTER → 2024-01-08 13:12 | Outpatient (BNVA) | payer MEDICARE, OTHER, SELFPAY | PROVIDERS: PCP Internal Medicine; Visit Provider Physician Assistant | DX: K58.9 Irritable bowel syndrome, unspecified (principal); R15.9 Full incontinence of feces; F41.9 Anxiety disorder, unspecified | CPT/HCPCS: 99202 ==

== ENCOUNTER 2024-02-19 12:36 | Outpatient (AMB) | payer MEDICARE, OTHER, SELFPAY ==
--- NOTE | 2024-02-19 12:47 | A.OFFVIS_ITS ---
Vital Signs 02/19/24 12:50 Height 5 ft 4 in Weight 185 lb 3.013 oz BMI 31.8 BP 114/61 Blood Pressure Location Lt brachial Position Sitting Pulse 75 Intake Visit Reasons: per Keren 6-8 weeks for a f/u Intake Note: Leeanne presents in the office as a 6-8 week follow up. CC: She states that she is having diarrhea when she eats anything. Allergies ciprofloxacin [Cipro] Allergy (Unknown, Verified 02/19/24 12:50) palpitations diphenhydramine [From Benadryl] Adverse Reaction (Intermediate, Verified 02/19/24 12:50) tachycardia haloperidol Adverse Reaction (Mild, Verified 02/19/24 12:50) Anxiety tramadol Adverse Reaction (Unknown, Verified 02/19/24 12:50) anxiety Codeine Sulfate Adverse Reaction (Unknown, Uncoded 02/19/24 12:50) anxiety/tachycardia HPI Comments Details: A 58-year-old female seen 1 month ago with abdominal pain-presents today with diarrhea- then says she does not have it much-Abdominal cramping relieved after BM-not much change- We had given dicyclomine trial- she has not taken it- Im scared to take it - She did not have her labs done. She has been scheduled for colonoscopy-last colonoscopy hyperplastic polyp 2014 Dr.Norris Mcgovern good- No N/V/fever or chills- [facility] Medical History IBS (irritable bowel syndrome) Moderate recurrent major depression Pure hypercholesterolemia UTI (urinary tract infection) Hearing loss HTN (hypertension) Anxiety Asthma Surgical History Female bladder prolapse History of bladder suspension procedure History of total abdominal hysterectomy Family History Brother Mental health disorder Father No problems noted. Mother Mental health disorder Social History Housing: House Alcohol intake: former Patient Tobacco Use Status: Former Tobacco user Tobacco use type: Cigarette e-Cigarette/Vaping Use: Never Used Second Hand Smoke Exposure: No service: No Current occupational status: unemployed Cognitive needs: No Hearing needs: No Vision needs: Yes Review of Systems Const All systems reviewed & are unremarkable except as noted in HPI and below Card Denies chest pain GI Reports loose stools, Denies nausea and Denies vomiting Physical Exam Vital Signs: Last Vital Signs Pulse 75 02/19/24 12:50 BP 114/61 02/19/24 12:50 BMI result Body Mass Index 31.8 Const General: cooperative, healthy appearing, comfortable and no acute distress Orientation/consciousness: patient oriented x3 Limitations: no limitations and language barrier Resp Effort & Inspection: normal respiratory effort and able to speak in complete sentences Neuro General: patient oriented x3 Assessment & Plan Assessment & Plan (1) IBS (irritable bowel syndrome): Comment: Lifelong loose stool, urgency, associated anxiety Code(s): K58.9 - Irritable bowel syndrome without diarrhea Category: Medical Plan: dicyclomine-trial reviewed- Patient Instructions: dicyclomine-trial reviewed- Follow through with colonoscopy call with concerns Coding Level of Care Code Est Pt Level 3 (33321) Diagnoses IBS (irritable bowel syndrome) K58.9 Time Spent (min) 25 Comment [id number]
[2024-02-19 12:50] VITALS: BP 114/61; PULSE 75; BMI 31.8
== END 2024-02-19 14:32 | disposition home or self-care (01) ==
PROVIDERS: PCP Internal Medicine; Visit Provider Physician Assistant
DX: K58.9 Irritable bowel syndrome, unspecified (principal)
CPT/HCPCS: 99213

== ENCOUNTER → 2024-02-19 12:36 | Outpatient (BNVA) | payer MEDICARE, OTHER, SELFPAY | PROVIDERS: PCP Internal Medicine; Visit Provider Physician Assistant | DX: K58.9 Irritable bowel syndrome, unspecified (principal) | CPT/HCPCS: 99212 ==

== ENCOUNTER 2024-04-03 13:08 | Outpatient (AMB) | payer OTHER, SELFPAY ==
[2024-04-03 13:09] VITALS: BP 126/70; BMI 30.6
--- NOTE | 2024-04-03 13:09 | MHC.PC.OV ---
Vital Signs 04/03/24 13:09 Height 5 ft 4 in Weight 178 lb BMI 30.6 BP 126/70 Blood Pressure Location Lt brachial Position Sitting Intake Visit Reasons: bp Intake Note: Patient here for a follow up BP Louver Mortiser Operator Required: No Accompanied by: Self / Same As Patient Allergies ciprofloxacin [Cipro] Allergy (Unknown, Verified 04/03/24 13:23) palpitations diphenhydramine [From Benadryl] Adverse Reaction (Intermediate, Verified 04/03/24 13:23) tachycardia haloperidol Adverse Reaction (Mild, Verified 04/03/24 13:23) Anxiety tramadol Adverse Reaction (Unknown, Verified 04/03/24 13:23) anxiety Codeine Sulfate Adverse Reaction (Unknown, Uncoded 04/03/24 13:23) anxiety/tachycardia Medication List - Last Reconciled 04/03/24 by Betsy Nelson MD atorvastatin 10 mg PO BEDTIME 90 days bisacodyl (Dulcolax (bisacodyl)) 20 mg (4 x 5 mg) PO ONCE PRN 1 day buspirone 5 mg PO DAILY calcium carbonate (Calcium 600) 600 mg PO DAILY 90 days cholecalciferol (vitamin D3) 25 mcg PO DAILY 90 days clonazepam 0.5 mg PO BID PRN clonidine HCl 0.1 mg PO BID dicyclomine 10 mg PO TID lamotrigine 75 mg PO DAILY mirtazapine 7.5 mg PO DAILY multivitamin 1 tab PO DAILY 30 days polyethylene glycol 3350 (Miralax) 238 grams PO ONCE PRN 1 day Ventolin HFA 90 mcg/actuation (albuterol sulfate) 2 puffs inhalation Q6H PRN 30 days NS Tobacco use date assessed: 04/03/24 Dental Screening Dental Screen Date: 04/03/24 Did you have a dental visit in the last 12 months?: No Did you have a dental problem in the last 6 months where you did not have access to dental care?: No Was dental information given to patient?: Patient has dentist HPI HPI Comments History of Present Illness Details This is a 59-year-old female with hypertension, pure hypercholesterolemia, moderate major depression and anxiety that comes today for follow-up on her conditions. She complains of allergic rhinitis that has been present for over a year and has tried loratadine with no significant relieved. I will prescribe cetirizine and refer her to an base filler operator. Blood pressure stable. Cholesterol has been well controlled with statins. Moderate major depression and anxiety are follow by Psychiatry and has been stable with medications. No chest pain or shortness of breath. [facility] Medical History (Updated 04/03/24 @ 14:28 by Betsy Nelson MD) IBS (irritable bowel syndrome) Moderate recurrent major depression Pure hypercholesterolemia UTI (urinary tract infection) Hearing loss HTN (hypertension) Anxiety Asthma Surgical History Female bladder prolapse History of bladder suspension procedure History of total abdominal hysterectomy Family History Brother Mental health disorder Father No problems noted. Mother Mental health disorder Social History Housing: House Alcohol intake: former Patient Tobacco Use Status: Former Tobacco user Tobacco use type: Cigarette e-Cigarette/Vaping Use: Never Used Second Hand Smoke Exposure: No service: No Current occupational status: unemployed Cognitive needs: No Hearing needs: No Vision needs: Yes Questionnaire PHQ-9 Over the last 2 weeks, how often have you been bothered by any of the following problems? 1. Little interest or pleasure in doing things: not at all 2. Feeling down, depressed, or hopeless: several days 3. Trouble falling or staying asleep, or sleeping too much: several days 4. Feeling tired or having little energy: not at all 5. Poor appetite or overeating: several days 6. Feeling bad about yourself - or that you are a failure or have let yourself or your family down: not at all 7. Trouble concentrating on things, such as reading the newspaper or watching television: not at all 8. Moving or speaking so slowly that other people could have noticed. Or the opposite - being so fidgety or restless that you have been moving around a lot more than usual: not at all 9. Thoughts that you would be better off or of hurting yourself in some way: not at all Total score: 3 Depression Screening Interpretation: Positive Depression Screening Follow-up: Existing condition, In treatment, Community Mental Health Worker F/U and Follow-up Visit Requested Depression Screening Done: Yes 00887 - PHQ-9 Billing: Yes Source: Developed by Drs. Joao Dunbar, Mynor Wang and colleagues, with an educational jose from [employer]. Thrive Questionnaire Date Thrive assessed: 04/03/24 I am a: Patient What is your living situation today?: I have a steady place to live Within the past 12 months, did the food you bought not last and you didn't have the money to get more?: Never true Within the past 12 months, did you worry whether your food would run out before you got money to buy more?: Never true Do you have trouble paying for medicines?: No Do you have trouble getting transportation to medical appointments?: No Do you have trouble paying your heating and electricity bill?: No Do you have trouble taking care of your child, family member or friend?: No Do you have trouble with day-to-day activities such as bathing, preparing meals, shopping, managing finances, etc.?: No Are you currently unemployed and looking for a job?: No Are you interested in more education?: No Please select the resources that you would like help with: None Currently or been in a relationship where the following occur: No concerns reported THRIVE Score: 0 AUDIT C Alcohol Use Questionnaire (AUDIT-C) 1. How often do you have a drink containing alcohol?: Never Total Score: 0 Score Reviewed/Action Taken: No MARCUS-7 AMB Questionnaire MARCUS-7 Date MARCUS - 7 assessed: 04/03/24 Feeling nervous, anxious, or on edge: 1 = Several days Not being able to stop or control worryin = Not at all Worrying too much about different things: 1 = Several days Trouble relaxin = Not at all Being so restless that it is hard to sit still: 0 = Not at all Becoming easily annoyed or irritable: 1 = Several days Feeling afraid as if something awful might happen: 1 = Several days Total MARCUS-7 score (0-4 normal; 5-9 mild; 10-14 moderate; 15-21 severe): 4 Source: Developed by Enedelia Rebolledo Kurt Kroenke and colleagues, with an educational jose from [employer]. MARCUS-7 Assessment Billing MARCUS-7 Assessment Tool: MARCUS-7 Assessment 20871 Review of Systems Const All systems reviewed & are unremarkable except as noted in HPI and below Card Denies chest pain at rest, Denies chest pain with activity, Denies edema, Denies irregular heart rhythm, Denies claudication, Denies dyspnea, Denies dyspnea on exertion, Denies orthopnea, Denies paroxysmal nocturnal dyspnea and Denies slow heart rate Resp Denies cough, Denies dyspnea and Denies dyspnea on exertion Physical exam (Primary Care) Vital Signs: Last Vital Signs BP 126/70 04/03/24 13:09 BMI result Body Mass Index 30.6 BMI Assessment/Plan discussion: High BMI High, discussed plan: lifestyle, weight reduction, dietary and physical activity Tobacco/Smoking Status: Tobacco use Status Tobacco use date assessed 04/03/24 04/03/24 13:14 Patient Tobacco Use Status Former Tobacco user 04/03/24 13:14 Tobacco use type Cigarette 04/03/24 13:14 e-Cigarette/Vaping Use Never Used 04/03/24 13:14 PHQ-9: PHQ-9 Score PHQ-9: Total score 3 04/03/24 13:27 Depression Screening Interpretation: Positive Depression Screening Follow-up: Existing condition, In treatment, Community Mental Health Worker F/U and Follow-up Visit Requested Thrive Assessment: Date of Thrive Assessment Date Thrive assessed 04/03/24 04/03/24 13:14 Currently or been in a relationship where the following occur: No concerns reported Resp Effort & Inspection: normal respiratory effort Auscultation: clear to auscultation bilaterally Cardio Jugular venous distension: no JVD Rate: regular rate Rhythm: regular rhythm Heart sounds: S1 normal heart sound present and S2 normal heart sound present Extrem General: Yes full ROM Assessment and Plan Assessment & Plan (1) Moderate recurrent major depression: Code(s): F33.1 - Major depressive disorder, recurrent, moderate Plan: Continue mirtazapine. Follow-up with psychiatry. (2) Allergic rhinitis: Code(s): J30.9 - Allergic rhinitis, unspecified Qualifiers: Allergic rhinitis trigger: pollen Allergic rhinitis seasonality: seasonal Qualified Code(s): J30.1 - Allergic rhinitis due to pollen Plan: Start cetirizine as needed. Referred to an base filler operator. (3) Essential hypertension: Code(s): I10 - Essential (primary) hypertension Plan: Continue clonidine. Blood pressure goal is equal or less than 130/80. (4) Pure hypercholesterolemia: Code(s): E78.00 - Pure hypercholesterolemia, unspecified Plan: Continue statins. Repeat lipid panel. Continue low-cholesterol diet. (5) Anxiety: Code(s): F41.9 - Anxiety disorder, unspecified Plan: Continue buspirone. Follow-up with psychiatry. Orders: Orders IRON PROFILE Today D64.9 - Anemia, unspecified Lipid Panel Today E78.5 - Hyperlipidemia, unspecified Vitamin D 25-OH Total Today E55.9 - Vitamin D deficiency, unspecified Comprehensive [place]. Panel Fast Today I10 - Essential (primary) hypertension Complete Blood Count Auto Diff Today D64.9 - Anemia, unspecified Referrals Allergy & Immunology Referral J30.9 - Allergic rhinitis, unspecified Medications: New cetirizine (Allergy Relief (cetirizine)) 10 mg PO DAILY PRN 90 tabs 0RF allergy symptoms 90 days Coding Level of Care Code Est Pt Level 4 (43968) Complex EM visit Add On G2211 Diagnoses Moderate recurrent major depression F33.1 Seasonal allergic rhinitis due to pollen J30.1 Allergic rhinitis trigger: pollen Allergic rhinitis seasonality: seasonal Essential hypertension I10 Pure hypercholesterolemia E78.00 Anxiety F41.9 Additional Codes MARCUS-7 Assessment Billing - MARCUS-7 Assessment Tool: MARCUS-7 Assessment 94839 ([id number]) Time Spent (min) 21
== END 2024-04-03 13:31 | disposition home or self-care (01) ==
PROVIDERS: PCP Internal Medicine; Visit Provider Internal Medicine
DX: J30.1 Allergic rhinitis due to pollen (principal); F33.1 Major depressive disorder, recurrent, moderate; I10 Essential (primary) hypertension; E78.00 Pure hypercholesterolemia, unspecified; F41.9 Anxiety disorder, unspecified
CPT/HCPCS: 99214; G2211

== ENCOUNTER 2024-09-11 11:50 | Day surgery (SDC) | payer MEDICARE, OTHER, SELFPAY ==
[2024-05-20 10:13] VITALS: BMI 30.6
--- NOTE | 2024-09-10 09:52 | P.CONAN_ITS ---
Documented by User: Kathryn Ronquillo NP 09/10/24 09:54 HPI - Anesthesia Eval Consult details Narrative: 59yo F for Colonoscopy PMFSH Active Problems Active Problems: All Active Problems Allergic rhinitis (Acute) Essential hypertension (Acute) Fecal incontinence (Acute) Dyspepsia (Acute) Physical exam (Acute) Mild anxiety (Acute) Otitis externa of right ear (Acute) Tinnitus (Acute) Physical exam (Acute ~09/14/21) IBS (irritable bowel syndrome) (Acute) Moderate recurrent major depression (Acute) Pure hypercholesterolemia (Acute) UTI (urinary tract infection) (Acute) Asthma (Acute) Anxiety (Acute) Hearing loss (Acute) Past Medical History Medical History IBS (irritable bowel syndrome) Moderate recurrent major depression Pure hypercholesterolemia UTI (urinary tract infection) Hearing loss HTN (hypertension) Anxiety Asthma Family History Family History Brother Mental health disorder Father No problems noted. Mother Mental health disorder Surgical History Surgical History H/O colonoscopy Female bladder prolapse History of bladder suspension procedure History of total abdominal hysterectomy Social History Social History Housing: House Alcohol intake: former Patient Tobacco Use Status: Former Tobacco user Tobacco use type: Cigarette e-Cigarette/Vaping Use: Never Used Second Hand Smoke Exposure: No Advance Directives: No Advance Directives Information Provided: Yes service: No Current occupational status: unemployed Cognitive needs: No Hearing needs: No Vision needs: Yes Meds Allergies Allergy/AdvReac Type Severity Reaction Status Date / Time ciprofloxacin [Cipro] Allergy Intermediate palpitation Verified 05/20/24 10:11 s codeine Allergy Intermediate anxiety/tac Verified 05/20/24 10:11 hycardia diphenhydramine AdvReac Intermediate tachycardia Verified 04/03/24 13:23 [From Benadryl] tramadol AdvReac Intermediate anxiety Verified 05/20/24 10:11 haloperidol AdvReac Mild Anxiety Verified 04/03/24 13:23 Home Medications ?Medication ?Instructions ?Recorded ?Confirmed ?Last Taken ?Type mirtazapine 7.5 mg tablet 7.5 mg PO DAILY 09/14/21 05/20/24 Unknown History clonidine HCl 0.1 mg tablet 0.1 mg PO BID 03/19/23 05/20/24 Unknown History lamotrigine 25 mg tablet 75 mg PO DAILY 03/19/23 05/20/24 Unknown History buspirone 5 mg tablet 5 mg PO DAILY 01/08/24 05/20/24 Unknown History clonazepam 1 mg tablet 0.5 mg PO BID PRN Anxiety 01/08/24 05/20/24 Unknown History Exam Height,Weight and Vital Signs: Height 5 ft 4 in Weight 80.739 kg Assessment and Plan Assessment Anesthesia Assessment: Chart Reviewed Documented by User: Yana Buckner MD 09/11/24 12:38 [facility] Past Medical History Medical History IBS (irritable bowel syndrome) Moderate recurrent major depression Pure hypercholesterolemia UTI (urinary tract infection) Hearing loss HTN (hypertension) Anxiety Asthma Family History Family History Brother Mental health disorder Father No problems noted. Mother Mental health disorder Family history of problems with anesthesia: No Surgical History Surgical History H/O colonoscopy Female bladder prolapse History of bladder suspension procedure History of total abdominal hysterectomy History of Problems with Anesthesia: No Social History Social History Housing: House Alcohol intake: former Patient Tobacco Use Status: Former Tobacco user Tobacco use type: Cigarette e-Cigarette/Vaping Use: Never Used Second Hand Smoke Exposure: No Advance Directives: No Advance Directives Information Provided: Yes service: No Current occupational status: unemployed Cognitive needs: No Hearing needs: No Vision needs: Yes Meds Allergies Allergy/AdvReac Type Severity Reaction Status Date / Time ciprofloxacin [Cipro] Allergy Intermediate palpitation Verified 05/20/24 10:11 s codeine Allergy Intermediate anxiety/tac Verified 05/20/24 10:11 hycardia diphenhydramine AdvReac Intermediate tachycardia Verified 04/03/24 13:23 [From Benadryl] tramadol AdvReac Intermediate anxiety Verified 05/20/24 10:11 haloperidol AdvReac Mild Anxiety Verified 04/03/24 13:23 Home Medications ?Medication ?Instructions ?Recorded ?Confirmed ?Last Taken ?Type mirtazapine 7.5 mg tablet 7.5 mg PO DAILY 09/14/21 05/20/24 Unknown History clonidine HCl 0.1 mg tablet 0.1 mg PO BID 03/19/23 05/20/24 Unknown History lamotrigine 25 mg tablet 75 mg PO DAILY 03/19/23 05/20/24 Unknown History buspirone 5 mg tablet 5 mg PO DAILY 01/08/24 05/20/24 Unknown History clonazepam 1 mg tablet 0.5 mg PO BID PRN Anxiety 01/08/24 05/20/24 Unknown History Exam Airway Mallampati Class: II TM Dist: >3cm Neck ROM: Full Heart: rrr Lungs: cta Assessment and Plan Assessment Anesthesia Assessment: Anesthesia Plan Discussed Final Anesthetic Review Family History of Problems with Anesthesia: No History of Problems with Anesthesia: No NPO: Yes ASA Class: III Final Preanesthetic Review: No Changes in Pt Med Stat Patient Risk: Low Procedure Risk: Low Anesthetic Plan Anesthetic Plan: MAC: Disposition: Standard PACU
[2024-09-11] VITALS (7 sets, daily range): BP systolic 116–137; BP diastolic 57–67; PULSE 49–69; RESP 16–18; TEMP 36.1–36.8; O2SAT 98–100; BMI 26.4
[2024-09-11] MEDS: Lactated Ringers 1,000 ML 100 ML IVCONT (13:03)
--- NOTE | 2024-09-11 14:05 | MHC.SHP ---
Pre-Procedural Eval Section A - 24 Hr Update-Section A only Date of Service: 09/11/24 Section B - Complete if H&P > 30 days Chief Complaint: IBS,full incontinence of feces, Details of Present Illness: IBS (irritable bowel syndrome) Moderate recurrent major depression Pure hypercholesterolemia UTI (urinary tract infection) Hearing loss HTN (hypertension) Anxiety Asthma Surgical History Female bladder prolapse History of bladder suspension procedure History of total abdominal hysterectomy Allergies: Allergies Allergy/AdvReac Type Severity Reaction Status Date / Time ciprofloxacin [Cipro] Allergy Intermediate palpitation Verified 09/11/24 13:24 s codeine Allergy Intermediate anxiety/tac Verified 09/11/24 13:24 hycardia diphenhydramine AdvReac Intermediate tachycardia Verified 09/11/24 13:24 [From Benadryl] tramadol AdvReac Intermediate anxiety Verified 09/11/24 13:24 haloperidol AdvReac Mild Anxiety Verified 09/11/24 13:24 Review of Systems Review of Systems Comment: Ten point ROS negative Exam Exam Comment: Gen appear: No acute distress HEENT: no icterus Chest: No overt resp distress Abd: soft, nontender, nondistended Psych: Stable affect, answering questions appropriately Neuro: A/Ox3 noted to move all extremities spontaneously Ext: no peripheral edema Plan Diagnosis/Plan: Unchanged I have reviewed the history and physical and performed a pertinent physical examination on my patient. No changes have occurred unless specified. Time Spent With Patient Time: Total time managing care of this patient today ____ minutes.
--- NOTE | 2024-09-11 14:44 | HO.OPN-COLON ---
Colonoscopy Operative Note Operative Note Date of Service: 09/11/24 Narrative: Procedure: Colonoscopy Indication: Screening Endoscopist: Lucie Soto MD Anesthesia Provider: Daily King CRNA Anesthesia type: MAC Instrument: Olympus [id number]-[id number] Consent: Indication, risks vs benefits, and alternatives were discussed with the patient who gave written informed consent to proceed. An manager strategy & account was utilized to assist with the consent. EKG, pulse, pulse oximetry and blood pressure were monitored throughout the procedure. Please see anesthesia flowsheet. Procedure: The patient was brought to the procedure room and placed in the left lateral decubitus position. IV medications were administered by the anesthesia provider in attendance. A digital rectal exam was performed which was abnormal for external hemorrhoids. A distal attachment cap was affixed to the tip of the colonoscope which was then inserted through the anus and advanced through the colon to the cecum at 75 cm,and terminal ileum. Appendiceal orifice and ileocecal valve were identified. Mucosa was carefully examined under high definition white light as the instrument was slowly withdrawn in a retrograde panoramic fashion. Retroflexion was performed in rectum. The procedure was not difficult. There were no immediate obvious complications. The quality of the prep was BBPS: 2+3+3 = adequate Withdrawal time 9 minutes. Limitations: No limitations. Findings: Mucosa: Normal to cecum and terminal ileum. Protruding lesions: Medium internal hemorrhoids without stigmata of recent bleeding. Impression: 1. Normal colon and terminal ileum mucosa 2. Internal hemorrhoids Recommendations: - repeat colonoscopy in 10 years for asymptomatic colorectal cancer screening
[2024-09-11] MEDS: Acetaminophen 1,000 MG/100 ML PIGGYBACK 400 MG IV (15:48)
== END 2024-09-11 16:35 | disposition home or self-care (01) ==
PROVIDERS: PCP Internal Medicine; Visit Provider Internal Medicine
PROC: 0DJD8ZZ Inspection of Lower Intestinal Tract, Via Natural or Artificial Opening Endoscopic (ICD-10-PCS; CPT 45378; principal; 2024-09-11 13:40)
DX: Z12.11 Encounter for screening for malignant neoplasm of colon (principal); K58.9 Irritable bowel syndrome, unspecified; R15.9 Full incontinence of feces; K64.8 Other hemorrhoids; E78.00 Pure hypercholesterolemia, unspecified; I10 Essential (primary) hypertension; J45.909 Unspecified asthma, uncomplicated; F33.2 Major depressive disorder, recurrent severe without psychotic features; F41.9 Anxiety disorder, unspecified; Z98.890 Other specified postprocedural states; Z88.1 Allergy status to other antibiotic agents; Z88.5 Allergy status to narcotic agent; Z88.8 Allergy status to other drugs, medicaments and biological substances; Z87.891 Personal history of nicotine dependence; Z56.0 Unemployment, unspecified
CPT/HCPCS: G0121; J0131; J2003; J2704

== ENCOUNTER → 2024-09-11 11:50 | Outpatient (BNV) | payer MEDICARE, OTHER, SELFPAY | PROVIDERS: PCP Internal Medicine; Visit Provider Internal Medicine | DX: Z12.11 Encounter for screening for malignant neoplasm of colon (principal); Z86.0102 Personal history of hyperplastic colon polyps; K64.8 Other hemorrhoids | CPT/HCPCS: G0105 ==

== ENCOUNTER 2024-09-16 13:26 | Outpatient (REF) | payer MEDICARE, OTHER, SELFPAY ==
[2024-09-16 13:41] LABS: MANUAL DIFF FLAG NO
[2024-09-16 14:24] LABS: Basophils Percent Auto 0.6 % (0-2); Eosinophils Absolute Auto 0.2 X10*3/uL (0.0-0.4); Eosinophils Percent Auto 2.1 % (0-4); Hematocrit 39.1 % (37.0-47.0); Hemoglobin 12.1 g/dl (12.0-16.0); Imm Gran Abs Auto 0.02 X10*3/uL (0.00-0.03); Imm Gran Pct Auto 0.3 % (0.0-0.4); Lymphocytes Absolute Auto 2.3 X10*3/uL (1.2-4.9); Lymphocytes Percent Auto 31.8 % (20-40); Mean Corpuscular HGB Conc 30.9 g/dl (31.0-35.0); Mean Corpuscular Hemoglobin 23.3 pg (27.0-33.0); Mean Corpuscular Volume 75.3 fL (80.0-98.0); Mean Platelet Volume 10.5 fL (9.4-12.3); Monocytes Absolute Auto 0.4 X10*3/uL (0.1-1.2); Monocytes Percent Auto 5.9 % (2-11); Neutrophils Absolute Auto 4.2 x10*3/uL (2.0-8.3); Neutrophils Percent Auto 59.3 % (45-73); Platelet Count 321 X10*3/uL (160-400); Red Blood Count 5.19 X10*6/uL (4.20-5.50); White Blood Count 7.1 X10*3/uL (4.8-10.8)
[2024-09-16 15:25] LABS: Albumin Level 4.2 g/dL (3.5-5.0); Anion Gap 12 (12-20); Aspartate Amino Transferase 21 U/L (5-31); Bilirubin Total 0.6 mg/dL (0.0-1.0); Blood Urea Nitrogen 7 mg/dL (9-16); Calcium 9.6 mg/dL (8.4-10.2); Carbon Dioxide 28 mmol/L (22-29); Chloride 106 mmol/L (96-108); Cholesterol 170 mg/dL (<200); Estimated Glomerular Filt Rate > 60; Glucose Fasting 96 mg/dL (60-99); HDL Cholesterol 48 mg/dL (>40); Iron 58 mcg/dL (30-160); LDL Cholesterol Calculated 93 mg/dL (<100); Percent Iron Saturation 18 % (15-50); Potassium 3.8 mmol/L (3.3-5.1); Sodium 142 mmol/L (135-145); Total Iron Binding Capacity 331 mcg/dL (228-428); Total Protein 7.1 g/dL (6.5-8.0); Triglycerides 149 mg/dL (<150); Unsaturated Iron Binding 273 ug/dL
[2024-09-16 15:34] LABS: Vitamin D 25-OH Total 28.7 ng/mL (>30)
[2024-09-16 15:38] LABS: Thyroid Stimulating Hormone 1.57 uIU/mL (0.32-4.0)
[2024-09-16 16:18] LABS: Alanine Aminotransferase 18 U/L (0-31); Alkaline Phosphatase 86 U/L (39-117)
[2024-09-17 21:13] LABS: Transglutaminase IgA <1.0 U/mL
--- OUTSIDE RECORDS SUMMARY | 2024-09-17 21:40 | XMS_ITS | Patient Health Record ---
Author Organization Joao Real III, MD Address [address] [place] [address] Care Team Providers Care Asic Design Engineer Name Role Phone [facility] Primary Care Provider Nancy Joao Devi Unavailable [phone] Allergies Allergen (clinical drug ingredient) Drug/Non Drug Allergy documented on EMR Reaction Allergy Type Onset Date Status Haldol Unknown Drug Allergy Active Codeine Phosphate Unknown Drug Allergy Active diphenhydramine Benadryl Unknown Drug Allergy A ctive Reason For Referral No Information Medications Medication SIG (Take, Route, Frequency, Duration) Notes Start Date End Date Status Calcium 600 600 MG TAKE 1 TABLET IN THE EVENING ONCE A DAY ORALLY Oral Active Multi-Vitamins TAKE 1 TABLET IN THE EVENING ONCE A DAY ORALLY Oral Active clonazePAM 0.5 MG TK 1/2 T PO BID Oral Active cloNIDine HCl 0.1 MG Oral Active Remeron 15 MG 1 tablet before bedt nikos every evening Orally Once a day Active Mirtazapine 30 MG TAKE 1 TABLET IN THE EVENING ONCE A DAY ORALLY Oral Active Fish Oil 1000 MG TAKE 1 TABLET IN THE EVENING ONCE A DAY ORALLY Oral Active Pravastatin Sodium 20 MG TAKE 1 TABLET I N THE EVENING ONCE A DAY ORALLY Oral Active Pravastatin Sodium 10 MG 1 tablet Orally Once a day for 30 day(s) Active Vitamin E 100 UNIT 1 capsule Orally Onc e a day for 30 day(s) Active Problems Problem Type SNOMED Code ICD Code Onset Dates Problem Status W/U Status Risk Notes Problem 1325450 Former smoker (Z87.891) Active confirmed She is highly motivated not to smoke and has a strategy for maintenance of abstinence. Problem 234130860 Obesity (E66.9) Active confirmed I recommended weight loss with exercise to healthy diet restricted in fat sodium and calories Problem 73231227 Thalassemia trait (D56.3) Active confirmed She continues to have a low mean cell volume with a normal ferritin. No action is necessary. Observation will continue. Problem 33501163 Unspecified urinary incontinence (R32) Active confirmed Problem 62543041 Depressive disorder, not elsewhere classified (F32.9) Active confirmed Problem 54057664 Iron deficiency anemia (D50.9) Active confirmed Her ferritin is in the normal range and she is no longer anemic. This is taking iron supplements. Observation will continue. Plan Of Treatment Pending Test Test Name Order Date PROFILE, RANDOM (COMPREHENSIVE METABOLIC ) 01/22/2017 PROFILE, RANDOM (COMPREHENSIVE METABOLIC ) 01/18/2021 FERRITIN 01/22/2017 CBC w DIFF 01/18/2021 CBC w DIFF 01/22/2017 Ferritin 01/18/2021 Insurance Providers Payer Name Payer Address Payer Phone Subscriber Number Group Number Insured Name Patient Relationship to Insured Coverage Start Date Coverage End Date [facility] [address] [address] [place] [address] [id number] Leeanne Amin Self - patient is the insured MEDICAID [address] [place], [place] [id number] Leeanne Amin Self - patient is the insured Medical (General) History Medical History History ICD Code urinary incontinence possible [id number] trait iron deficiency anemia hyperlipidemia depression anxiety 6 cm ovarian cyst dysfunctional uterine bleeding fibroid uterus hysterectomy Epistaxis 784.7 Tinnitus 388.30 Surgical History Surgery Date(Month/Year) bladder incontinence surgery total abdominal hysterectomy, right salp ingo-oophorectomy October 2012 3 vaginal deliveries
[2024-09-19 23:35] LABS: Endomysial IgA Antibody Negative (Negative)
== END 2024-09-16 13:27 | disposition home or self-care (01) ==
LOC: HO.LAB 13:26
PROVIDERS: Physician Assistant; PCP Internal Medicine; Visit Provider Internal Medicine
DX: K58.9 Irritable bowel syndrome, unspecified (principal); R15.9 Full incontinence of feces; K52.9 Noninfective gastroenteritis and colitis, unspecified; R19.8 Other specified symptoms and signs involving the digestive system and abdomen; R19.7 Diarrhea, unspecified; E55.9 Vitamin D deficiency, unspecified; D64.9 Anemia, unspecified; E78.5 Hyperlipidemia, unspecified; I10 Essential (primary) hypertension
CPT/HCPCS: 36415; 80053; 80061; 82306; 83540; 84443; 85025; 86231; 86364

== ENCOUNTER 2024-10-16 13:16 | Outpatient (AMB) | payer MEDICARE, OTHER, SELFPAY ==
--- NOTE | 2024-10-16 13:27 | A.OFFPC_ITS ---
Vital Signs 10/16/24 13:28 Height 5 ft 4 in Weight 154 lb BMI 26.4 BP 130/82 Blood Pressure Location Lt brachial Position Sitting Intake Visit Reasons: Annual Exam Intake Note: Patient here for a physical exam Surveillance Technician Required: No Accompanied by: Self / Same As Patient Allergies ciprofloxacin [Cipro] Allergy (Intermediate, Verified 10/16/24 13:36) palpitations codeine Allergy (Intermediate, Verified 10/16/24 13:36) anxiety/tachycardia diphenhydramine [From Benadryl] Adverse Reaction (Intermediate, Verified 10/16/24 13:36) tachycardia tramadol Adverse Reaction (Intermediate, Verified 10/16/24 13:36) anxiety haloperidol Adverse Reaction (Mild, Verified 10/16/24 13:36) Anxiety Medication List - Last Reconciled 10/16/24 by Betsy Nelson MD atorvastatin 10 mg PO BEDTIME 90 days buspirone 5 mg PO DAILY calcium carbonate (Calcium 600) 600 mg PO DAILY 90 days cetirizine (Allergy Relief (cetirizine)) 10 mg PO DAILY PRN 90 days cholecalciferol (vitamin D3) 25 mcg PO DAILY 90 days clonazepam 0.5 mg PO BID PRN clonidine HCl 0.1 mg PO BID dicyclomine 10 mg PO TID lamotrigine 75 mg PO DAILY mirtazapine 7.5 mg PO DAILY multivitamin 1 tab PO DAILY 30 days Ventolin HFA 90 mcg/actuation (albuterol sulfate) 2 puffs inhalation Q6H PRN 30 days NS Tobacco use date assessed: 10/16/24 Dental Screening Dental Screen Date: 10/16/24 Did you have a dental visit in the last 12 months?: Yes Did you have a dental problem in the last 6 months where you did not have access to dental care?: No Was dental information given to patient?: Patient has dentist HPI HPI Comments History of Present Illness Details Telugu-speaking patient and I did translate. This is a 59-year-old female that comes for her physical exam. Colonoscopy done last year which was normal. Mammogram done last year. No need for Pap smear due to hysterectomy. Tdap vaccine done 2011 and she will receive tetanus vaccine today. Complains of abdominal pain and diarrhea and weight loss due to having diarrhea after she eats. Saw Gastroenterology for that matter. Will make another appointment with Gastroenterology. Also complains of headaches and I will refer her to Neurology. She has moderate major depression follow by Psychiatry and is controlled with medications. [facility] Medical History IBS (irritable bowel syndrome) Moderate recurrent major depression Pure hypercholesterolemia UTI (urinary tract infection) Hearing loss HTN (hypertension) Anxiety Asthma Surgical History H/O colonoscopy Female bladder prolapse History of bladder suspension procedure History of total abdominal hysterectomy Family History Brother Mental health disorder Father No problems noted. Mother Mental health disorder Social History Housing: House Are you a primary career technical education teacher to a significant other at home: No Do you presently have visiting nurse or other home services: No Alcohol intake: former Patient Tobacco Use Status: Former Tobacco user Tobacco use type: Cigarette e-Cigarette/Vaping Use: Never Used Second Hand Smoke Exposure: No service: No Current occupational status: unemployed Cognitive needs: No Hearing needs: No Vision needs: Yes Questionnaire PHQ-9 Over the last 2 weeks, how often have you been bothered by any of the following problems? 1. Little interest or pleasure in doing things: not at all 2. Feeling down, depressed, or hopeless: several days 3. Trouble falling or staying asleep, or sleeping too much: several days 4. Feeling tired or having little energy: not at all 5. Poor appetite or overeating: several days 6. Feeling bad about yourself - or that you are a failure or have let yourself or your family down: not at all 7. Trouble concentrating on things, such as reading the newspaper or watching television: not at all 8. Moving or speaking so slowly that other people could have noticed. Or the opposite - being so fidgety or restless that you have been moving around a lot more than usual: not at all 9. Thoughts that you would be better off or of hurting yourself in some way: not at all Total score: 3 Depression Screening Interpretation: Positive Depression Screening Follow-up: Existing condition, In treatment, Community Mental Health Worker F/U and Follow- up Visit Requested Depression Screening Done: Yes 76064 - PHQ-9 Billing: Yes Source: Developed by Drs. Joao Dunbar, Mynor Wang and colleagues, with an educational jose from [employer]. Thrive Questionnaire Date Thrive assessed: 10/16/24 I am a: Patient What is your living situation today?: I have a steady place to live Within the past 12 months, did the food you bought not last and you didn't have the money to get more?: Never true Within the past 12 months, did you worry whether your food would run out before you got money to buy more?: Never true Do you have trouble paying for medicines?: No Do you have trouble getting transportation to medical appointments?: No Do you have trouble paying your heating and electricity bill?: No Do you have trouble taking care of your child, family member or friend?: No Do you have trouble with day-to-day activities such as bathing, preparing meals, shopping, managing finances, etc.?: No Are you currently unemployed and looking for a job?: No Are you interested in more education?: No Please select the resources that you would like help with: None Currently or been in a relationship where the following occur: No concerns reported THRIVE Score: 0 AUDIT C Alcohol Use Questionnaire (AUDIT-C) 1. How often do you have a drink containing alcohol?: Never Total Score: 0 Score Reviewed/Action Taken: No MARCUS-7 AMB Questionnaire MARCUS-7 Date MARCUS - 7 assessed: 10/16/24 Feeling nervous, anxious, or on edge: 1 = Several days Not being able to stop or control worryin = Not at all Worrying too much about different things: 1 = Several days Trouble relaxin = Not at all Being so restless that it is hard to sit still: 0 = Not at all Becoming easily annoyed or irritable: 0 = Not at all Feeling afraid as if something awful might happen: 0 = Not at all Total MARCUS-7 score (0-4 normal; 5-9 mild; 10-14 moderate; 15-21 severe): 2 Source: Developed by Drs. Joao Dunbar, Mynor Wang and colleagues, with an educational jose from [employer]. MARCUS-7 Assessment Billing MARCUS-7 Assessment Tool: MARCUS-7 Assessment 54159 Review of Systems Const All systems reviewed & are unremarkable except as noted in HPI and below Reports headache(s) ENT Reports headache(s) Card Denies chest pain at rest, Denies chest pain with activity, Denies edema, Denies irregular heart rhythm, Denies claudication, Denies dyspnea, Denies dyspnea on exertion, Denies orthopnea, Denies paroxysmal nocturnal dyspnea and Denies slow heart rate Resp Denies cough, Denies dyspnea and Denies dyspnea on exertion GI Reports abdominal pain, Denies change in bowel habits, Denies excessive flatus, Reports early satiety, Reports diarrhea, Denies nausea and Denies vomiting Neuro Reports headache(s) and Denies lack of coordination Physical exam (Primary Care) Vital Signs: Last Vital Signs BP 130/82 10/16/24 13:28 BMI result Body Mass Index 26.4 Tobacco/Smoking Status: Tobacco use Status Tobacco use date assessed 10/16/24 10/16/24 13:32 Patient Tobacco Use Status Former Tobacco user 10/16/24 13:32 Tobacco use type Cigarette 10/16/24 13:32 e-Cigarette/Vaping Use Never Used 10/16/24 13:32 PHQ-9: PHQ-9 Score PHQ-9: Total score 3 10/16/24 15:34 Depression Screening Interpretation: Positive Depression Screening Follow-up: Existing condition, In treatment, Community Mental Health Worker F/U and Follow- up Visit Requested Thrive Assessment: Date of Thrive Assessment Date Thrive assessed 10/16/24 10/16/24 13:32 Currently or been in a relationship where the following occur: No concerns reported [facility] Head: Yes normal to inspection, Yes normocephalic and Yes atraumatic Ears: external ears normal Eyes General: appearance normal, both eyes and all related structures Eyelids: Yes eyelids normal Conjunctivae: conjunctivae normal Neck Neck: Yes normal visual inspection and Yes supple Resp Effort & Inspection: normal respiratory effort Auscultation: clear to auscultation bilaterally Cardio Jugular venous distension: no JVD Rate: regular rate Rhythm: regular rhythm Heart sounds: S1 normal heart sound present and S2 normal heart sound present GI Inspection: Yes normal to inspection Palpation (GI): Soft to palpation and nontender Auscultation: normal bowel sounds Skin General skin exam: no rashes or lesions noted Neuro General: no focal motor deficits Extrem General: Yes full ROM Psych Appearance: grossly normal Office Procedures Flu Questionnaire Does the patient have a severe egg allergy?: No Immunizations Fluarix Triv [id number] (PF) 45 mcg (15 mcg x 3)/0.5 mL IM syringe Performing Provider: Betsy Nelson MD [place] [facility] Documented (not given) by: ARELY Orozco on 10/16/24 13:32 Reason Not Given: Patient Refused tetanus-diphtheria toxoids-Td 2 Lf unit-2 Lf unit/0.5 mL IM suspension Performing Provider: Betsy Nelson MD [place] [facility] Administered by: ARELY Orozco on 10/16/24 13:57 Dose Route Admin Location Dispensed Lot Number Expiration Date NDC Ginger Farmer 0.5 mL IM Left Deltoid 0.5 mL [id number] 11/17/24 [address]-4 [employer] VIS Given Date VIS Provided VIS Publication Date 10/16/24 Single Vaccine 21 Eligibility Eligibility Date Funding Source Not [facility] Eligible 10/16/24 [facility] Coding Level of Care Code Est Pt Level 3 (13735) Est Pt Prev Care 40-64y(32981) Diagnoses Physical exam Z00.00 Chronic headaches R51.9; G89.29 Moderate recurrent major depression F33.1 Additional Codes MARCUS-7 Assessment Billing - MARCUS-7 Assessment Tool: MARCUS-7 Assessment 59280 ([id number]) PHQ-9 - 92372 - PHQ-9 Billing: Yes ([id number]) Time Spent (min) 34 Assessment & Plan Assessment & Plan (1) Physical exam: Code(s): Z00.00 - Encounter for general adult medical examination without abnormal findings Category: Medical Plan: Repeat in a year. (2) Chronic headaches: Code(s): R51.9 - Headache, unspecified; G89.29 - Other chronic pain Category: Medical Plan: Referred to neurology. (3) Moderate recurrent major depression: Code(s): F33.1 - Major depressive disorder, recurrent, moderate Category: Medical Plan: Follow-up with psychiatry. Orders: Orders Influenza [id number] Immunization Today Z23 - Encounter for immunization Td State Immunization Today Z23 - Encounter for immunization Referrals Neurology Referral G89.29 - Other chronic pain, R51.9 - Headache, unspecified
[2024-10-16 13:28] VITALS: BP 130/82; BMI 26.4
== END 2024-10-16 13:59 | disposition home or self-care (01) ==
PROVIDERS: PCP Internal Medicine; Visit Provider Internal Medicine
DX: Z00.00 Encounter for general adult medical examination without abnormal findings (principal); R51.9 Headache, unspecified; G89.29 Other chronic pain; F33.1 Major depressive disorder, recurrent, moderate; Z23 Encounter for immunization

== ENCOUNTER → 2024-10-16 13:16 | Outpatient (BNVA) | payer MEDICARE, OTHER, SELFPAY | PROVIDERS: PCP Internal Medicine; Visit Provider Internal Medicine | DX: Z00.00 Encounter for general adult medical examination without abnormal findings (principal); R51.9 Headache, unspecified; G89.29 Other chronic pain; F33.1 Major depressive disorder, recurrent, moderate; Z23 Encounter for immunization | CPT/HCPCS: 90471; 90714; 96127; 99212; 99396 ==

== ENCOUNTER 2025-01-21 08:31 | Outpatient (REF) | payer MEDICARE, OTHER, SELFPAY | END 2025-01-21 08:32 | disposition home or self-care (01) | LOC: HO.MAMMO 08:31 | PROVIDERS: PCP Internal Medicine; Visit Provider Internal Medicine | DX: Z12.31 Encounter for screening mammogram for malignant neoplasm of breast (principal) | CPT/HCPCS: 77063; 77067 ==

== ENCOUNTER → 2025-01-21 09:30 | Outpatient (BNV) | payer MEDICARE, OTHER, SELFPAY | PROVIDERS: PCP Internal Medicine; Visit Provider Internal Medicine | DX: Z12.31 Encounter for screening mammogram for malignant neoplasm of breast (principal) | CPT/HCPCS: 77063; 77067 ==

== ENCOUNTER 2025-04-15 10:50 | Outpatient (AMB) | payer MEDICARE, OTHER, SELFPAY ==
--- NOTE | 2025-04-15 11:05 | MHC.PC.OV ---
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 Accompanied by: Self / Same As Patient Allergies ciprofloxacin (Cipro) Allergy (Intermediate, Verified 04/15/25 11:43) palpitations codeine Allergy (Intermediate, Verified 04/15/25 11:43) anxiety/tachycardia diphenhydramine (From Benadryl) Adverse Reaction (Intermediate, Verified 04/15/25 11:43) tachycardia tramadol Adverse Reaction (Intermediate, Verified 04/15/25 11:43) anxiety haloperidol Adverse Reaction (Mild, Verified 04/15/25 11:43) Anxiety Medication List - Last Reconciled 04/15/25 by Betsy Nelson MD atorvastatin 10 mg PO BEDTIME 90 days buspirone 5 mg PO DAILY calcium carbonate (Calcium 600) 600 mg PO DAILY 90 days cetirizine (Allergy Relief (cetirizine)) 10 mg PO DAILY PRN 90 days cholecalciferol (vitamin D3) 25 mcg PO DAILY 90 days clonazepam 0.5 mg PO BID PRN clonidine HCl 0.1 mg PO BID dicyclomine 10 mg PO TID fluconazole 150 mg PO Q3D 2 doses lamotrigine 75 mg PO DAILY mirtazapine 15 mg PO DAILY multivitamin 1 tab PO DAILY 30 days Ventolin HFA 90 mcg/actuation (albuterol sulfate) 2 puffs inhalation Q6H PRN 30 days NS Tobacco use date assessed: 10/16/24 Dental Screening Dental Screen Date: 10/16/24 HPI HPI Comments History of Present Illness Details This is a 60-year-old female with pure hypercholesterolemia, moderate recurrent major depression, anxiety that complains of weight loss, abdominal pain and vaginal pruritus. Weight loss and abdominal pain has been present for few months. Abdominal pain is exacerbated by foods and occasionally cause diarrhea. Will order ultrasound of the abdomen. Has an appointment with Gastroenterology soon. She has vaginal pruritus that started a week ago after using a cream. Will be referred to OBGYN and will be prescribed fluconazole. Cholesterol well controlled with statins. Depression with anxiety is follow by Psychiatry. [facility] Medical History (Updated 04/15/25 @ 12:07 by Betsy Nelson MD) IBS (irritable bowel syndrome) Moderate recurrent major depression Pure hypercholesterolemia UTI (urinary tract infection) Hearing loss HTN (hypertension) Anxiety Asthma Surgical History H/O colonoscopy Female bladder prolapse History of bladder suspension procedure History of total abdominal hysterectomy Family History Brother Mental health disorder Father No problems noted. Mother Mental health disorder Social History Housing: House Are you a primary care consultant to a significant other at home: No Do you presently have visiting nurse or other home services: No Alcohol intake: former Patient Tobacco Use Status: Former Tobacco user Tobacco use type: Cigarette e-Cigarette/Vaping Use: Never Used Second Hand Smoke Exposure: No service: No Current occupational status: unemployed Cognitive needs: No Hearing needs: No Vision needs: Yes Questionnaire Thrive Questionnaire Date Thrive assessed: 10/16/24 MARCUS-7 AMB Questionnaire MARCUS-7 Date MARCUS - 7 assessed: 10/16/24 Source: Developed by Drs. Joao Dunbar, Enedelia Chaudhari, Mynor Trevino and colleagues, with an educational jose from [employer]. Review of Systems Const All systems reviewed & are unremarkable except as noted in HPI and below Card Denies chest pain at rest, Denies chest pain with activity, Denies edema, Denies irregular heart rhythm, Denies claudication, Denies dyspnea, Denies dyspnea on exertion, Denies orthopnea, Denies paroxysmal nocturnal dyspnea and Denies slow heart rate Resp Denies cough, Denies dyspnea and Denies dyspnea on exertion GI Denies abdominal pain, Denies change in bowel habits, Denies excessive flatus, Denies nausea and Denies vomiting Denies urinary incontinence, Denies urinary hesitancy and Denies urinary urgency Neuro Denies behavioral changes and Denies lack of coordination Psych Denies behavioral changes Physical exam (Primary Care) Vital Signs: Last Vital Signs BP 122/86 04/15/25 11:17 BMI result Body Mass Index 25.9 Tobacco/Smoking Status: Tobacco use Status Tobacco use date assessed 10/16/24 04/15/25 11:08 Patient Tobacco Use Status Former Tobacco user 04/15/25 11:08 Tobacco use type Cigarette 04/15/25 11:08 e-Cigarette/Vaping Use Never Used 04/15/25 11:08 Thrive Assessment: Date of Thrive Assessment Date Thrive assessed 10/16/24 04/15/25 11:08 Resp Effort & Inspection: normal respiratory effort Auscultation: clear to auscultation bilaterally Cardio Jugular venous distension: no JVD Rate: regular rate Rhythm: regular rhythm Heart sounds: S1 normal heart sound present and S2 normal heart sound present Extrem General: Yes full ROM Psych Appearance: grossly normal Coding Level of Care Code Est Pt Level 4 (12822) Complex EM visit Add On G2211 Diagnoses Moderate recurrent major depression F33.1 Anxiety F41.9 Pure hypercholesterolemia E78.00 Weight loss R63.4 Abdominal pain R10.9 Vaginal pruritus N89.8 Time Spent (min) 24 Assessment & Plan Assessment & Plan (1) Moderate recurrent major depression: Code(s): F33.1 - Major depressive disorder, recurrent, moderate Category: Medical (2) Anxiety: Code(s): F41.9 - Anxiety disorder, unspecified Category: Medical (3) Pure hypercholesterolemia: Code(s): E78.00 - Pure hypercholesterolemia, unspecified Category: Medical (4) Weight loss: Code(s): R63.4 - Abnormal weight loss Category: Medical (5) Abdominal pain: Code(s): R10.9 - Unspecified abdominal pain Category: Medical (6) Vaginal pruritus: Code(s): N89.8 - Other specified noninflammatory disorders of vagina Category: Medical Plan Start fluconazole. Referred to OBGYN. Continue current meds. Ultrasound of the abdomen ordered. Orders: Orders Lipid Panel Today E78.5 - Hyperlipidemia, unspecified Comprehensive [place]. Panel Fast Today I10 - Essential (primary) hypertension IRON PROFILE Today D64.9 - Anemia, unspecified Complete Blood Count Auto Diff Today D64.9 - Anemia, unspecified US abdomen limited Today R10.9 - Unspecified abdominal pain Thyroid Stimulating Hormone Today R63.4 - Abnormal weight loss Vitamin D 25-OH Total Today E55.9 - Vitamin D deficiency, unspecified Vitamin B12 and Folate Today E53.8 - Deficiency of other specified B group vitamins Referrals PAPER FINISHER Referral N89.8 - Other specified noninflammatory disorders of vagina Medications: New fluconazole 150 mg PO Q3D 2 tabs 0RF 2 doses
[2025-04-15 11:17] VITALS: BP 122/86; BMI 25.9
== END 2025-04-15 11:53 | disposition home or self-care (01) ==
LOC: HO.HMCH 10:51
PROVIDERS: PCP Internal Medicine; Visit Provider Internal Medicine
DX: F33.1 Major depressive disorder, recurrent, moderate (principal); F41.9 Anxiety disorder, unspecified; E78.00 Pure hypercholesterolemia, unspecified; R63.4 Abnormal weight loss; R10.9 Unspecified abdominal pain; N89.8 Other specified noninflammatory disorders of vagina

== ENCOUNTER → 2025-04-15 10:50 | Outpatient (BNVA) | payer MEDICARE, OTHER, SELFPAY | PROVIDERS: PCP Internal Medicine; Visit Provider Internal Medicine | DX: F33.1 Major depressive disorder, recurrent, moderate (principal); F41.9 Anxiety disorder, unspecified; E78.00 Pure hypercholesterolemia, unspecified; R63.4 Abnormal weight loss; R10.9 Unspecified abdominal pain; N89.8 Other specified noninflammatory disorders of vagina | CPT/HCPCS: 99212 ==

== ENCOUNTER 2025-04-28 12:29 | Outpatient (REF) | payer MEDICARE, OTHER, SELFPAY ==
[2025-04-28 13:03] LABS: MANUAL DIFF FLAG NO
[2025-04-28 14:05] LABS: Hematocrit 37.0 % (37.0-47.0); Hemoglobin 11.4 g/dl (12.0-16.0); Imm Gran Abs Auto 0.02 X10*3/uL (0.00-0.03); Imm Gran Pct Auto 0.3 % (0.0-0.4); Lymphocytes Absolute Auto 2.1 X10*3/uL (1.2-4.9); Mean Corpuscular HGB Conc 30.8 g/dl (31.0-35.0); Mean Corpuscular Hemoglobin 23.1 pg (27.0-33.0); Mean Corpuscular Volume 74.9 fL (80.0-98.0); NRBC Abs Auto 0.000 X10*3/uL (0.0-0.012); NRBC Pct Auto 0.0 /100WBC (0.0-0.2); Platelet Count 336 X10*3/uL (160-400); Red Blood Count 4.94 X10*6/uL (4.20-5.50); White Blood Count 6.4 X10*3/uL (4.8-10.8)
[2025-04-28 14:58] LABS: Alanine Aminotransferase 17 U/L (0-31); Albumin Level 4.3 g/dL (3.5-5.0); Alkaline Phosphatase 68 U/L (39-117); Anion Gap 11 (12-20); Aspartate Amino Transferase 19 U/L (5-31); Blood Urea Nitrogen 16 mg/dL (9-16); Calcium 9.3 mg/dL (8.4-10.2); Carbon Dioxide 28 mmol/L (22-29); Chloride 107 mmol/L (96-108); Cholesterol 228 mg/dL (<200); Estimated Glomerular Filt Rate > 60; HDL Cholesterol 64 mg/dL (>40); Iron 75 mcg/dL (30-160); Percent Iron Saturation 22 % (15-50); Potassium 4.3 mmol/L (3.3-5.1); Sodium 142 mmol/L (135-145); Total Iron Binding Capacity 343 mcg/dL (228-428); Total Protein 7.0 g/dL (6.5-8.0); Triglycerides 68 mg/dL (<150); Unsaturated Iron Binding 268 ug/dL
[2025-04-28 15:15] LABS: Thyroid Stimulating Hormone 1.46 uIU/mL (0.32-4.0)
[2025-04-28 15:27] LABS: Folate 14.7 ng/mL (> or = 4.0); Vitamin B12 280 pg/mL (200-900)
== END 2025-04-28 12:30 | disposition home or self-care (01) ==
LOC: HO.LAB 12:29
PROVIDERS: PCP Internal Medicine; Visit Provider Internal Medicine
DX: I10 Essential (primary) hypertension (principal); E55.9 Vitamin D deficiency, unspecified; E78.5 Hyperlipidemia, unspecified; D64.9 Anemia, unspecified; R63.4 Abnormal weight loss; E53.8 Deficiency of other specified B group vitamins
CPT/HCPCS: 36415; 80053; 80061; 82306; 82607; 82746; 83540; 84443; 85025

== ENCOUNTER 2025-05-19 11:43 | Outpatient (REF) | payer MEDICARE, OTHER, SELFPAY ==
[2025-05-19 12:59] LABS: Appearance Urine Cloudy; PH 5.0 (5.0-9.0); Specific Gravity - Urine 1.020 (1.005-1.025); UMIC TRIGGER UACC YES
[2025-05-19 13:20] LABS: UACC Culture Trigger YES
== END 2025-05-19 11:44 | disposition home or self-care (01) ==
LOC: HO.LAB 11:43
PROVIDERS: PCP Internal Medicine; Visit Provider Internal Medicine
DX: R39.9 Unspecified symptoms and signs involving the genitourinary system (principal)
CPT/HCPCS: 81001; 81003; 87086; 87088; 87186

== ENCOUNTER 2025-06-10 11:38 | Outpatient (REF) | payer OTHER, SELFPAY ==
[2025-06-10 13:01] LABS: Appearance Urine Clear; Glucose Urine UA Negative (Negative); PH 5.5 (5.0-9.0); Specific Gravity - Urine 1.025 (1.005-1.025)
== END 2025-06-10 11:39 | disposition home or self-care (01) ==
LOC: HO.LAB 11:38
PROVIDERS: PCP Internal Medicine; Visit Provider Internal Medicine
DX: R30.0 Dysuria (principal); R39.9 Unspecified symptoms and signs involving the genitourinary system
CPT/HCPCS: 81003

== ENCOUNTER 2025-06-12 08:44 | Outpatient (REF) | payer OTHER, SELFPAY ==
--- NOTE | ~2025-06-12 | US_ITS ---
EXAMINATION: US ABDOMEN LIMITED CLINICAL INFORMATION: Abdominal pain.. COMPARISON: None. Correlation made with renal ultrasound 12/18/2016. TECHNIQUE: Real-time imaging of the right upper quadrant abdominal viscera. FINDINGS: PANCREAS: Visualized portions are unremarkable. LIVER: The liver is normal in size. The right hepatic lobe measures 13.9 cm in length. The liver contour is normal. There is diffuse increased liver parenchymal echogenicity, consistent with hepatic steatosis. No focal hepatic lesion. There is no intrahepatic biliary duct dilatation seen. GALLBLADDER: Gallbladder demonstrates a 1.0 x 1.0 x 1.2 cm mobile gallstone. No wall thickening, or pericholecystic fluid collection. Negative sonographic Brown's sign. COMMON BILE DUCT: Normal in caliber measuring 0.3 cm in diameter. RIGHT KIDNEY: No hydronephrosis. No renal calculi or focal parenchymal lesions. The kidney measures 11.5 cm in maximum dimension. FREE FLUID: None. US/US abdomen limited IMPRESSION: 1. Mild diffuse increased echogenicity of the liver, consistent with steatosis. No suspicious focal lesion. No biliary dilatation. 2. Cholelithiasis. No gallbladder inflammation. Electronically signed by: Ruben Flores MD 06/12/2025 09:19 AM EDT
== END 2025-06-12 08:45 | disposition home or self-care (01) ==
LOC: HO.US 08:44
PROVIDERS: PCP Internal Medicine; Visit Provider Internal Medicine
DX: R10.9 Unspecified abdominal pain (principal)
CPT/HCPCS: 76705

== ENCOUNTER → 2025-06-12 08:48 | Outpatient (BNV) | payer OTHER, SELFPAY | PROVIDERS: PCP Internal Medicine; Visit Provider Radiology Diagnostic Radiology | DX: K80.20 Calculus of gallbladder without cholecystitis without obstruction (principal) | CPT/HCPCS: 76705 ==

== ENCOUNTER 2025-07-10 10:23 | Outpatient (AMB) | payer MEDICARE, OTHER, SELFPAY ==
--- NOTE | 2025-07-10 10:31 | A.OFFVIS_ITS ---
Vital Signs 07/10/25 10:32 Height 5 ft 4 in Weight 146 lb BMI 25.1 BP 109/59 L Blood Pressure Location Lt brachial Position Sitting Pulse 72 Pulse Oximetry (%) 98 Oxygen Delivery Method Room Air Intake Visit Reasons: IBS jm pt Intake Note: Patient complex follow up for IBS/Keren pt debra was 02/19/[address] Soto on 09/2024 with 10 yrs recall. 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 Accompanied by: Self / Same As Patient Allergies ciprofloxacin (Cipro) Allergy (Intermediate, Verified 07/10/25 10:31) palpitations codeine Allergy (Intermediate, Verified 07/10/25 10:31) anxiety/tachycardia diphenhydramine (From Benadryl) Adverse Reaction (Intermediate, Verified 07/10/25 10:31) tachycardia tramadol Adverse Reaction (Intermediate, Verified 07/10/25 10:31) anxiety haloperidol Adverse Reaction (Mild, Verified 07/10/25 10:31) Anxiety Medication List - Last Reconciled 07/10/25 by Grace Euceda CNP atorvastatin 10 mg PO BEDTIME 90 days buspirone 5 mg PO DAILY calcium carbonate (Calcium 600) 600 mg PO DAILY 90 days cetirizine (Allergy Relief (cetirizine)) 10 mg PO DAILY PRN 90 days cholecalciferol (vitamin D3) 25 mcg PO DAILY 90 days clonazepam 0.5 mg PO BID PRN clonidine HCl 0.1 mg PO BID dicyclomine 10 mg PO TID fluconazole 150 mg PO Q3D 2 doses lamotrigine 75 mg PO DAILY mirtazapine 15 mg PO DAILY multivitamin 1 tab PO DAILY 30 days Ventolin HFA 90 mcg/actuation (albuterol sulfate) 2 puffs inhalation Q6H PRN 30 days NS HPI HPI IBS jm pt: Details: Patient is a 60-year-old female with PMH of hypertension, anxiety, depression and asthma. Pt presents with ongoing epigastric pain that occurs primarily after eating, reported as intermittent and not daily. The pain sometimes radiates towards the perianal area and is accompanied by episodes of diarrhea?typically loose stools?which can occur immediately or shortly after meals. At times, stool incontinence is noted, with episodes where passage is not perceived. Frequency of these GI symptoms is variable, but tends to worsen when appetite and intake are increased. Notably, when restricting oral intake (e.g., to bread and banana) for anticipated outings, symptoms darien but result in further weight loss. Unintentional weight loss of ~37 lbs over 16 months reported, with most recent weight at 147 lbs (down from 184 lbs prior year). No hematochezia noted. Associated symptoms include perianal irritation during periods of frequent stooling. No significant heartburn or dysphagia. Pt endorses some fever and mild cough on a few occasions, but these episodes are associated with missed vaccine appointments and are not persistent. Lifelong tendencies toward episodic abdominal pain and urgent bowel movements, with exacerbation and changes in stool frequency in recent years. Additional comorbidity includes recently noted hepatic steatosis and presence of a solitary gallstone (1 cm) by recent ultrasound; general surgery consultation pending for consideration of cholecystectomy. Recent colonoscopy (09/2024) was normal. Pt stopped diclosamine due to subjective dizziness and lack of efficacy, and is wary of medication interactions. [facility] Medical History (Updated 07/10/25 @ 13:00 by Grace Euceda CNP) Unintentional weight loss Diarrhea IBS (irritable bowel syndrome) Moderate recurrent major depression Pure hypercholesterolemia UTI (urinary tract infection) Hearing loss HTN (hypertension) Anxiety Asthma Surgical History H/O colonoscopy Female bladder prolapse History of bladder suspension procedure History of total abdominal hysterectomy Family History Brother Mental health disorder Father No problems noted. Mother Mental health disorder Social History Housing: House Are you a primary child care team lead to a significant other at home: No Do you presently have visiting nurse or other home services: No Alcohol intake: former Patient Tobacco Use Status: Former Tobacco user Tobacco use type: Cigarette e-Cigarette/Vaping Use: Never Used Second Hand Smoke Exposure: No service: No Current occupational status: unemployed Cognitive needs: No Hearing needs: No Vision needs: Yes Review of Systems Const Reports as per HPI ENT Reports as per HPI Card Reports as per HPI Resp Reports as per HPI GI Reports as per HPI Reports as per HPI Physical Exam Vital Signs: Last Vital Signs Pulse 72 10/03/25 10:32 BP 109/59 L 07/10/25 10:32 Pulse Ox 98 07/10/25 10:32 Oxygen Delivery Method Room Air 07/10/25 10:32 BMI result Body Mass Index 25.1 Const General: healthy appearing, no acute distress and well developed Nutritional Appearance: average body habitus Orientation/consciousness: patient oriented x3 HEENT Head: Yes normal to inspection, Yes normocephalic and Yes atraumatic Face and sinus: Yes normal facial exam Eyes General: appearance normal, both eyes and all related structures Neck Neck: Yes normal visual inspection Resp Effort & Inspection: normal respiratory effort, able to speak in complete sentences, no tracheal deviation and symmetric chest movement Cardio Jugular venous distension: no JVD GI Inspection: Yes normal to inspection and No distended Palpation (GI): Soft to palpation, not firm, nontender and No hepatosplenomegaly present Auscultation: normal bowel sounds Rectal Exam - Female: deferred Neuro General: patient oriented x3 Gait exam (Neuro): Normal gait present Psych Appearance: grossly normal Mental Status: mental status grossly normal Speech and movement: Normal speech and movement present Affect: Anxious affect present Attitude: cooperative Thought process: Normal thought process present Thought content: Normal thought content present Insight: Good insight present (Psych) Judgement: Good judgement present (Psych) Results Reviewed Results Reviewed: Date of Service: 06/12/25 Procedure(s): US abdomen limited Accession Number(s): [id number] cc: Betsy Joshi MD~ Reason for Exam: R10.9 - Unspecified abdominal pain EXAMINATION: US ABDOMEN LIMITED CLINICAL INFORMATION: Abdominal pain.. COMPARISON: None. Correlation made with renal ultrasound 12/18/2016. TECHNIQUE: Real-time imaging of the right upper quadrant abdominal viscera. FINDINGS: PANCREAS: Visualized portions are unremarkable. LIVER: The liver is normal in size. The right hepatic lobe measures 13.9 cm in length. The liver contour is normal. There is diffuse increased liver parenchymal echogenicity, consistent with hepatic steatosis. No focal hepatic lesion. There is no intrahepatic biliary duct dilatation seen. GALLBLADDER: Gallbladder demonstrates a 1.0 x 1.0 x 1.2 cm mobile gallstone. No wall thickening, or pericholecystic fluid collection. Negative sonographic Brown's sign. COMMON BILE DUCT: Normal in caliber measuring 0.3 cm in diameter. RIGHT KIDNEY: No hydronephrosis. No renal calculi or focal parenchymal lesions. The kidney measures 11.5 cm in maximum dimension. FREE FLUID: None. US/US abdomen limited IMPRESSION: 1. Mild diffuse increased echogenicity of the liver, consistent with steatosis. No suspicious focal lesion. No biliary dilatation. 2. Cholelithiasis. No gallbladder inflammation. Operative Note Date of Service: 09/11/24 Narrative: Procedure: Colonoscopy Indication: Screening Endoscopist: Lucie Soto MD Anesthesia Provider: Daily King CRNA Anesthesia type: MAC Instrument: Olympus [id number]-H190L Consent: Indication, risks vs benefits, and alternatives were discussed with the patient who gave written informed consent to proceed. An site interpreter was utilized to assist with the consent. EKG, pulse, pulse oximetry and blood pressure were monitored throughout the procedure. Please see anesthesia flowsheet. Procedure: The patient was brought to the procedure room and placed in the left lateral decubitus position. IV medications were administered by the anesthesia provider in attendance. A digital rectal exam was performed which was abnormal for external hemorrhoids. A distal attachment cap was affixed to the tip of the colonoscope which was then inserted through the anus and advanced through the colon to the cecum at 75 cm,and terminal ileum. Appendiceal orifice and ileocecal valve were identified. Mucosa was carefully examined under high definition white light as the instrument was slowly withdrawn in a retrograde panoramic fashion. Retroflexion was performed in rectum. The procedure was not difficult. There were no immediate obvious complications. The quality of the prep was BBPS: 2+3+3 = adequate Withdrawal time 9 minutes. Limitations: No limitations. Findings: Mucosa: Normal to cecum and terminal ileum. Protruding lesions: Medium internal hemorrhoids without stigmata of recent bleeding. Impression: 1. Normal colon and terminal ileum mucosa 2. Internal hemorrhoids Assessment & Plan Assessment & Plan (1) Diarrhea: Comment: 09/11/24 colonoscopy complete with adequate prep-Normal to cecum and terminal ileum, internal hemorrhoids. Recommendations for repeat in 10 years ( 2033) Code(s): R19.7 - Diarrhea, unspecified Category: Medical Qualifiers: Diarrhea type: unspecified type Qualified Code(s): R19.7 - Diarrhea, unspecified Plan: Lifelong GI symptoms with recent exacerbation, significant weight loss, loose stools after meals, presence of 1-cm gallstone and fatty liver, normal colonoscopy in 2023, stool incontinence, and perianal irritation. celiac serologies 09/2024. Pt declined YG today, to be perform at future visits. Additional Testing: - Bloodwork: inflammatory markers, HIV, hepatitis panel, diabetes screening, and malabsorption (B12, folate) - Stool studies: Ova & parasites, C diff, fecal calprotectin, fat, and WBC - Imaging: Chest X-ray and abdominopelvic CT ordered (as per discussion, for unexplained weight loss and persistent/worsening diarrhea) Medication Management: - Diclosamine discontinued (pt reported dizziness and minimal benefit) Lifestyle Recommendations: - Continue to ensure adequate hydration (encourage primarily water) - Maintain intake as tolerated, but do not overly restrict diet; monitor food triggers - Encourage food symptom diary to correlate flares with intake Follow-Up: - FU in 8 weeks to review labs and imaging, reassess symptom trajectory and response to interventions (2) Cholelithiasis: Code(s): K80.20 - Calculus of gallbladder without cholecystitis without obstruction Category: Medical Qualifiers: Cholelithiasis location: gallbladder Cholecystitis presence: without cholecystitis Biliary obstruction: without biliary obstruction Qualified Code(s): K80.20 - Calculus of gallbladder without cholecystitis without obstruction Plan: approx 1-cm gallstone found on recent US; can explain post-prandial pain and diarrhea, though atypical presentation Additional Testing: - Await general surgery consult scheduled for 07/22/2025 Medication Management: - None initiated at present Lifestyle Recommendations: - Avoid fatty meals which may precipitate biliary colic Follow-Up: - FU after surgical consult, coordinate care as indicated Plan Follow-up in 8 weeks or sooner as needed Time: I spent a total of 40 minutes on the date of encounter which includes: Preparing to see the patient (reviewed previous documentation, test results and medical history) Performing a medically appropriate exam and/or evaluation Ordering medications, tests, and procedures Documenting clinical information in the health record Orders: Orders Calprotectin, Fecal Today R19.7 - Diarrhea, unspecified C Reactive Protein Today R19.7 - Diarrhea, unspecified XR chest 2V Today R63.4 - Abnormal weight loss Basic Metabolic Panel Today R63.4 - Abnormal weight loss CT abdomen pelvis wo/w IV con Today R10.9 - Unspecified abdominal pain, R19.7 - Diarrhea, unspecified, R63.4 - Abnormal weight loss HIV Ab/Ag Today R63.4 - Abnormal weight loss Hemoglobin A1c Today R19.7 - Diarrhea, unspecified Hepatitis A,B,C Profile Today R63.4 - Abnormal weight loss Fecal Fat Qualitative Today R19.7 - Diarrhea, unspecified Leukocytes Stool Qualitative Today R19.7 - Diarrhea, unspecified Ova and Parasite Today R19.7 - Diarrhea, unspecified CDiff Gene PCR Today R19.7 - Diarrhea, unspecified Medications: Discontinued dicyclomine Discontinued Reason: Doctor's Order 10 mg PO TID 90 caps 0RF Coding Level of Care Code Established Pt Est Pt Level 4 (16443) Patient Type Established Diagnoses Diarrhea, unspecified type R19.7 Diarrhea type: unspecified type Calculus of gallbladder without cholecystitis without obstruction K80.20 Cholelithiasis location: gallbladder Cholecystitis presence: without cholecystitis Biliary obstruction: without biliary obstruction
[2025-07-10 10:32] VITALS: BP 109/59; PULSE 72; O2SAT 98; BMI 25.1
== END 2025-07-10 11:28 | disposition home or self-care (01) ==
LOC: HO.HGI 10:24
PROVIDERS: PCP Internal Medicine; Visit Provider Nurse Practitioner Family
DX: R19.7 Diarrhea, unspecified (principal); K80.20 Calculus of gallbladder without cholecystitis without obstruction
CPT/HCPCS: 99214

== ENCOUNTER → 2025-07-10 10:23 | Outpatient (BNVA) | payer MEDICARE, OTHER, SELFPAY | PROVIDERS: PCP Internal Medicine; Visit Provider Nurse Practitioner Family | DX: K80.20 Calculus of gallbladder without cholecystitis without obstruction (principal); R19.7 Diarrhea, unspecified | CPT/HCPCS: 99212 ==

== ENCOUNTER 2025-09-10 15:31 | Outpatient (REF) | payer MEDICARE, OTHER, SELFPAY ==
--- NOTE | ~2025-09-10 | XR_ITS ---
EXAMINATION: XR CHEST CLINICAL INFORMATION: R63.4 - Abnormal weight loss COMPARISON: None available. TECHNIQUE: 2 views of the chest were obtained. FINDINGS: No significant abnormality is noted involving the heart, lungs, mediastinum, bony thorax or soft tissues. XR/XR chest 2V IMPRESSION: No acute disease Electronically signed by: Zhao Menon MD 09/10/2025 04:40 PM [facility]
[2025-09-10 16:47] LABS: Anion Gap 11 (12-20); Blood Urea Nitrogen 17 mg/dL (9-16); Calcium 9.7 mg/dL (8.4-10.2); Carbon Dioxide 27 mmol/L (22-29); Chloride 108 mmol/L (96-108); Estimated Glomerular Filt Rate > 60; Potassium 4.1 mmol/L (3.3-5.1); Sodium 142 mmol/L (135-145)
[2025-09-11 05:36] LABS: HBS Num1 0.00 mIU/mL (0-7.99); HBc Num1 0.06 S/CO (0.00-0.79); HBsAGNum1 0.30 S/CO (0.00-0.99); HIV Num 1 0.06 S/CO (0.00-0.99); Hepatitis A Antibody IgM 0.25 Index (0-0.79); Hepatitis B Surface Antigen Negative (Negative); ~HepC Num1 0.13 S/CO (0.00-0.79); ~Hepatitis A Antibody IgM Nonreactive (Nonreactive); ~Hepatitis B Surface Antibody NONREACTIVE (Nonreactive); ~Hepatitis C Antibody Nonreactive (Nonreactive)
== END 2025-09-10 15:32 | disposition home or self-care (01) ==
LOC: HO.XRAY 15:31
PROVIDERS: PCP Internal Medicine; Visit Provider Nurse Practitioner Family
DX: Z11.4 Encounter for screening for human immunodeficiency virus [HIV] (principal); R63.4 Abnormal weight loss; R19.7 Diarrhea, unspecified; Z13.1 Encounter for screening for diabetes mellitus
CPT/HCPCS: 36415; 71046; 80048; 83036; 86140; 86704; 86706; 86709; 86803; 87340; 87389

== ENCOUNTER → 2025-09-10 16:09 | Outpatient (BNV) | payer MEDICARE, OTHER, SELFPAY | PROVIDERS: PCP Internal Medicine; Visit Provider Radiology Diagnostic Radiology | DX: R63.4 Abnormal weight loss (principal) | CPT/HCPCS: 71046 ==

== ENCOUNTER 2025-09-11 12:39 | Outpatient (REF) | payer MEDICARE, OTHER, SELFPAY ==
[2025-09-11 14:29] LABS: CDiff Gene PCR NEGATIVE (Negative)
== END 2025-09-11 12:40 | disposition home or self-care (01) ==
LOC: HO.LNP 12:39
PROVIDERS: Visit Provider Nurse Practitioner Family
DX: R19.7 Diarrhea, unspecified (principal)
CPT/HCPCS: 82705; 83993; 87177; 87209; 87493; 89055

== ENCOUNTER 2025-09-15 12:38 | Outpatient (AMB) | payer MEDICARE, OTHER, SELFPAY ==
--- NOTE | 2025-09-15 12:48 | MHC.OFFVIS ---
Vital Signs 09/15/25 12:49 Height 5 ft 4 in Weight 147 lb 14.629 oz BMI 25.4 BP 126/61 Blood Pressure Location Lt brachial Position Sitting Pulse 69 Intake Visit Reasons: 8wk Intake Note: Patient follow up for Cholelithiasis, no lab/fecal or any radiology results. Patient cc: diarrhea come and go and abdominal pain is much better. Business Services Representative Required: Yes Business Services Representative Services: Business Services Representative Present Business Services Representative Name: Jaydon [phone] Accompanied by: Self / Same As Patient Allergies ciprofloxacin (Cipro) Allergy (Intermediate, Verified 09/15/25 12:48) palpitations codeine Allergy (Intermediate, Verified 09/15/25 12:48) anxiety/tachycardia diphenhydramine (From Benadryl) Adverse Reaction (Intermediate, Verified 09/15/25 12:48) tachycardia tramadol Adverse Reaction (Intermediate, Verified 09/15/25 12:48) anxiety haloperidol Adverse Reaction (Mild, Verified 09/15/25 12:48) Anxiety HPI HPI 8wk: Details: Patient is a 60-year-old female with PMH of hypertension, anxiety, depression and asthma. follow-up visit for chronic diarrhea. She has a history of lifelong diarrhea, which she experiences in association with pain, and she had a recent exacerbation with some weight loss. Since her last visit on July 10, 2025, her abdominal symptoms have improved with less daily pain. Her appetite has also improved from being poor at the last visit. She has a known history of gallstones and fatty liver. A prior workup for her symptoms included a normal colonoscopy in September 2024, a recent normal chest X-ray, and normal labs. Additional labs for HIV and hepatitis were negative, and she has immunity to hepatitis B. [facility] Medical History (Updated 07/10/25 @ 13:00 by Grace Euceda CNP) Unintentional weight loss Diarrhea IBS (irritable bowel syndrome) Moderate recurrent major depression Pure hypercholesterolemia UTI (urinary tract infection) Hearing loss HTN (hypertension) Anxiety Asthma Surgical History H/O colonoscopy Female bladder prolapse History of bladder suspension procedure History of total abdominal hysterectomy Family History Brother Mental health disorder Father No problems noted. Mother Mental health disorder Social History Housing: House Are you a primary daycare teacher to a significant other at home: No Do you presently have visiting nurse or other home services: No Alcohol intake: former Patient Tobacco Use Status: Former Tobacco user Tobacco use type: Cigarette e-Cigarette/Vaping Use: Never Used Second Hand Smoke Exposure: No service: No Current occupational status: unemployed Cognitive needs: No Hearing needs: No Vision needs: Yes Physical Exam Vital Signs: Last Vital Signs Pulse 69 09/15/25 12:49 BP 126/61 09/15/25 12:49 BMI result Body Mass Index 25.4 Const General: healthy appearing, no acute distress and well developed Nutritional Appearance: average body habitus Orientation/consciousness: patient oriented x3 HEENT Head: Yes normal to inspection, Yes normocephalic and Yes atraumatic Face and sinus: Yes normal facial exam Eyes General: appearance normal, both eyes and all related structures Neck Neck: Yes normal visual inspection Resp Effort & Inspection: normal respiratory effort, able to speak in complete sentences, no tracheal deviation and symmetric chest movement Cardio Jugular venous distension: no JVD GI Rectal Exam - Female: visual inspection normal, normal sphincter tone, No fecal impaction, No Lesions present (GI), No Anal fissure(s) present, No hemorrhoids (tags only), No Laceration(s) present (GI), No Excoriation present (GI), No mass and No tenderness Neuro General: patient oriented x3 Gait exam (Neuro): Normal gait present Psych Appearance: grossly normal Mental Status: mental status grossly normal Speech and movement: Normal speech and movement present Affect: normal affect Attitude: cooperative Thought process: Normal thought process present Thought content: Normal thought content present Insight: Good insight present (Psych) Judgement: Good judgement present (Psych) Results Reviewed Results Reviewed: Date of Service: 09/10/25 Procedure(s): XR chest 2V Accession Number(s): [id number] cc: Betsy Joshi MD; Grace Euceda CNP~ Reason for Exam: R63.4 - Abnormal weight loss EXAMINATION: XR CHEST CLINICAL INFORMATION: R63.4 - Abnormal weight loss COMPARISON: None available. TECHNIQUE: 2 views of the chest were obtained. FINDINGS: No significant abnormality is noted involving the heart, lungs, mediastinum, bony thorax or soft tissues. XR/XR chest 2V IMPRESSION: No acute disease Assessment & Plan Assessment & Plan (1) Diarrhea: Comment: 09/11/24 colonoscopy complete with adequate prep-Normal to cecum and terminal ileum, internal hemorrhoids. Recommendations for repeat in 10 years ( 2033) Code(s): R19.7 - Diarrhea, unspecified Category: Medical Qualifiers: Diarrhea type: unspecified type Qualified Code(s): R19.7 - Diarrhea, unspecified Plan: The patient presents for follow-up of lifelong diarrhea, with recent improvement in associated abdominal pain. - Her prior workup, including a colonoscopy and labs, has been reassuringly normal. - A digital rectal exam performed today showed hemorrhoidal tags, otherwise was normal. - A CT of the abdomen and pelvis is scheduled for October 26 to further evaluate her internal ab organs. - Stool studies are currently pending. - Will follow up after the CT scan and surgical consult are complete. (2) Weight loss: Code(s): R63.4 - Abnormal weight loss Category: Medical Plan: The patient previously reported unexplained weight loss, for which CXR and labs including, A1c, TSH, HIV and hepatitis were ordered and came back negative. - Her appetite has since improved. - The plan includes a pending CT scan of the abdomen and pelvis to further investigate. (3) Cholelithiasis: Code(s): K80.20 - Calculus of gallbladder without cholecystitis without obstruction Category: Medical Qualifiers: Cholelithiasis location: gallbladder Cholecystitis presence: without cholecystitis Biliary obstruction: without biliary obstruction Qualified Code(s): K80.20 - Calculus of gallbladder without cholecystitis without obstruction Plan: The patient has a known gallstone, which could be contributing to her symptoms. - She has an appointment with general surgery on September 21 for a consultation regarding her gallbladder and potential surgical options. - The patient wishes to understand the guidance from the surgeon before deciding on a procedure. Plan Follow-up after imaging or sooner as needed Time: I spent a total of 31 minutes on the date of encounter which includes: Preparing to see the patient (reviewed previous documentation, test results and medical history) Performing a medically appropriate exam and/or evaluation Ordering medications, tests, and procedures Documenting clinical information in the health record Coding Level of Care Code Established Pt Est Pt Level 4 (08301) Patient Type Established Diagnoses Diarrhea, unspecified type R19.7 Diarrhea type: unspecified type Weight loss R63.4 Calculus of gallbladder without cholecystitis without obstruction K80.20 Cholelithiasis location: gallbladder Cholecystitis presence: without cholecystitis Biliary obstruction: without biliary obstruction
[2025-09-15 12:49] VITALS: BP 126/61; PULSE 69; BMI 25.4
== END 2025-09-15 13:39 | disposition home or self-care (01) ==
LOC: HO.HGI 12:38
PROVIDERS: PCP Internal Medicine; Visit Provider Nurse Practitioner Family
DX: R19.7 Diarrhea, unspecified (principal); R63.4 Abnormal weight loss; K80.20 Calculus of gallbladder without cholecystitis without obstruction
CPT/HCPCS: 99214

== ENCOUNTER → 2025-09-15 12:38 | Outpatient (BNVA) | payer MEDICARE, OTHER, SELFPAY | PROVIDERS: PCP Internal Medicine; Visit Provider Nurse Practitioner Family | DX: R19.7 Diarrhea, unspecified (principal); R63.4 Abnormal weight loss; K80.20 Calculus of gallbladder without cholecystitis without obstruction | CPT/HCPCS: 99212 ==

== ENCOUNTER 2025-09-21 13:07 | Outpatient (AMB) | payer MEDICARE, OTHER, SELFPAY ==
--- NOTE | 2025-09-21 13:08 | MHC.OFFVIS ---
Vital Signs 09/21/25 13:09 Height 5 ft 4 in Weight 149 lb BMI 25.6 BP 138/66 Blood Pressure Location Lt brachial Position Sitting Pulse 83 Intake Visit Reasons: Calculus of gallbladder without cholecystitis Intake Note: Patient presents for an assessment for Calculus of gallbladder without cholecystitis. Pt c/o; epigastric pain, denies RUQ pain, nausea or vomiting. She has been having this epigastric pain since she was a teen. No recent gallbladder attacks. - Chest X-ray 06/12/2025- Abd US Otolaryngology Surgeon Required: Yes Otolaryngology Surgeon Language: Private Client Advisor Services: Otolaryngology Surgeon Present Otolaryngology Surgeon Name: Anisha Information Interpreted: non-clinical & clinical Accompanied by: Self / Same As Patient Allergies ciprofloxacin (Cipro) Allergy (Intermediate, Verified 09/21/25 13:22) palpitations codeine Allergy (Intermediate, Verified 09/21/25 13:22) anxiety/tachycardia diphenhydramine (From Benadryl) Adverse Reaction (Intermediate, Verified 09/21/25 13:22) tachycardia tramadol Adverse Reaction (Intermediate, Verified 09/21/25 13:22) anxiety haloperidol Adverse Reaction (Mild, Verified 09/21/25 13:22) Anxiety HPI HPI Calculus of gallbladder without cholecystitis: Details: [age] year old female referred for gallstones. She had an ultrasound done last June, showing gallstones without cholecystitis. She apparently has had a long history of GI issues. She says that we would have vague abdominal pain mostly in the epigastric area frequently. She has had poor appetite She says that he has had this problem since she was in her teens. She also has this frequent sensation of urgency to go to the bathroom. She says that she frequently has loose stools. In view of her chronic GI complaints, she says she has had lost about 40 lb of weight for the past 1-2 years. She otherwise denies pain on the right upper quadrant. She denies any vomiting. [facility] Medical History (Updated 09/21/25 @ 13:38 by Kwaku Good MD) Gallstone Unintentional weight loss Diarrhea IBS (irritable bowel syndrome) Moderate recurrent major depression Pure hypercholesterolemia UTI (urinary tract infection) Hearing loss HTN (hypertension) Anxiety Asthma Surgical History H/O colonoscopy Female bladder prolapse History of bladder suspension procedure History of total abdominal hysterectomy Family History Brother Mental health disorder Father No problems noted. Mother Mental health disorder Social History Housing: House Are you a primary live in caregiver to a significant other at home: No Do you presently have visiting nurse or other home services: No Alcohol intake: former Patient Tobacco Use Status: Former Tobacco user Tobacco use type: Cigarette e-Cigarette/Vaping Use: Never Used Second Hand Smoke Exposure: No service: No Current occupational status: unemployed Cognitive needs: No Hearing needs: No Vision needs: Yes Review of Systems Const Denies chills and Denies fever(s) Card Denies chest pain, Denies dyspnea and Denies dyspnea on exertion Resp Denies cough, Denies dyspnea and Denies dyspnea on exertion GI Denies hematochezia and Denies change in bowel habits Denies hematuria Musc Denies back pain and Denies limited range of motion Neuro Denies focal weakness and Denies convulsions Psych Denies depression and Denies mood swings Physical Exam Vital Signs: Last Vital Signs Pulse 83 09/21/25 13:09 BP 138/66 09/21/25 13:09 BMI result Body Mass Index 25.6 Const General: comfortable and no acute distress Orientation/consciousness: patient oriented x3 Neck Neck: Yes no lymphadenopathy Resp Auscultation: clear to auscultation bilaterally Cardio Rhythm: regular rhythm GI Palpation (GI): Soft to palpation, nontender and no guarding Neuro General: patient oriented x3 Assessment & Plan Assessment & Plan (1) Gallstone: Code(s): K80.20 - Calculus of gallbladder without cholecystitis without obstruction Category: Medical Plan: She has had this history of chronic GI complaints including epigastric pain, urgency to have bowel movements, loose stools. She denies pain in the right upper quadrant. Her overall symptomatology does not suggest a gallbladder problem She is scheduled to have a CAT scan next month. I will see her again in the office thereafter. I did tell her that if her symptoms appear to be secondary to gallstones, then she may benefit from cholecystectomy She has never had any endoscopy or colonoscopy in the past she says. I told her that she should discuss this with her certified court/medical interpreter as well. Coding Level of Care Code New Pt Level 3 (67555) Diagnoses Gallstone K80.20
[2025-09-21 13:09] VITALS: BP 138/66; PULSE 83; BMI 25.6
== END 2025-09-21 13:39 | disposition home or self-care (01) ==
LOC: HO.HGS 13:07
PROVIDERS: PCP Internal Medicine; Visit Provider Surgery
DX: K80.20 Calculus of gallbladder without cholecystitis without obstruction (principal)
CPT/HCPCS: 99203

== ENCOUNTER → 2025-09-21 13:07 | Outpatient (BNVA) | payer MEDICARE, OTHER, SELFPAY | PROVIDERS: PCP Internal Medicine; Visit Provider Surgery | DX: K80.20 Calculus of gallbladder without cholecystitis without obstruction (principal) | CPT/HCPCS: 99202 ==